=== PATIENT | female | born 1960 | race Caucasian/White ===

== ENCOUNTER 2022-01-07 10:34 | Emergency (ER) | payer OTHER, SELFPAY ==
[2022-01-07 10:35] VITALS: BP 131/96; PULSE 89; RESP 16; TEMP 36.4; O2SAT 98
--- NOTE | 2022-01-07 10:43 | PC.NURSE ---
Pt took home covid test a week ago that came back positive. 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
--- NOTE | 2022-01-07 10:48 | ED.NAVMDI ---
HPI - Nausea/Vomiting/Diarrhea General Chief complaint: Nausea/Vomiting/Diarrhea Stated complaint: nausea/vomiting Time Seen by Provider: 01/07/22 10:39 History of Present Illness HPI Narrative: 61-year-old female presents emergency room for evaluation of nausea, vomiting, diarrhea intermittently for 3 weeks. Patient is under the care of oncologist at [facility] for liver cancer, which metastasized from primary breast cancer. Patient states she has been in contact with her PCP on several occasions, and was told to just take it easy. Patient denies melena cheesy or hemoptysis. Related Data Allergies Allergy/AdvReac Type Severity Reaction Status Date / Time No Known Allergies Allergy Verified 01/07/22 10:58 Review of Systems Review of Systems: CONSTITUTIONAL: Denies fever, chills, or sweats. EYES: Denies visual changes, redness, or discharge. ENT: Denies rhinorrhea, congestion, sore throat, or otalgia. CARDIOVASCULAR: Denies chest pain, palpitations, or edema. RESPIRATORY: Denies cough or dyspnea. GASTROINTESTINAL: Reports abdominal cramping, nausea, vomiting and diarrhea GENITOURINARY: Denies dysuria or hematuria. SKIN: Denies rash or itching. MUSCULOSKELETAL: Denies back pain, joint pain, or myalgia. NEUROLOGIC: Denies headache, numbness, dizziness, or weakness. PSYCHIATRIC: Denies anxiety or depression. Exam Narrative: GENERAL: Well-appearing, well-nourished, and in no acute distress. HEAD: Normocephalic, atraumatic. EYES: PERRLA and EOMI. ENT: Nares clear, no rhinorrhea or epistaxis. Mucous membranes dry. CHEST: Clear to auscultation. No respiratory distress. No wheezes rales or rhonchi HEART: Regular rate and rhythm. No murmur heard. Normal peripheral pulses. ABDOMEN: Soft, nontender, nondistended, normal active bowel sounds. EXTREMITIES: Normal range of motion. No edema. SKIN: Warm, dry, no rash. NEURO: No focal deficits. Alert and oriented x3. PSYCH: Normal mood and affect. Course Vital Signs Vital signs: Vital Signs Temperature 36.4 C 01/07/22 10:35 Pulse Rate 89 01/07/22 10:35 Respiratory Rate 16 01/07/22 10:35 Blood Pressure 131/96 H 01/07/22 10:35 Pulse Oximetry 98 01/07/22 10:35 Temperature 36.4 C 01/07/22 10:35 Pulse Rate 89 01/07/22 10:35 Respiratory Rate 16 01/07/22 10:35 Blood Pressure 131/96 H 01/07/22 10:35 Pulse Oximetry 98 01/07/22 10:35 MDM - Nausea/Vomiting/Diarrhea Lab Data Result diagrams: 01/07/22 10:49 01/07/22 10:49 Labs: Lab Results 01/07/22 01/07/22 Range/Units 10:49 10:49 WBC 5.2 (4.5-10.0) K/mm3 RBC 4.05 L (4.2-5.4) M/mm3 Hgb 13.6 (12.0-15.0) g/dL Hct 41.5 (37.0-47.0) % MCV 102.5 H (80-100) fl MCH 33.6 (26-34) pg MCHC 32.8 (32-36) g/dl RDW 14.8 H (11.5-14.5) % Plt Count 149 L (150-375) k/mm3 MPV 10.5 H (7.4-10.4) fl Immature Gran % (Auto) 0.2 (0-0.5) % Neut % (Auto) 59.2 (45.5-73.1) % Lymph % (Auto) 27.5 (18.3-44.2) % [place] % (Auto) 11.5 H (2.6-8.5) % Eos % (Auto) 1.2 (0-4.4) % Baso % (Auto) 0.4 (0.2-1.2) % Lymph # (Auto) 1.43 (0.9-3.2) K/mm3 [place] # (Auto) 0.6 (0.1-0.6) K/mm3 Eos # (Auto) 0.1 (0-0.3) K/mm3 Baso # (Auto) 0.0 (0.0-0.1) K/mm3 Abs Immat Gran (auto) 0.01 (0.00-0.031) K/mm3 Absolute Neuts (auto) 3.1 (1.3-6.7) K/mm3 Absolute Nucleated RBC 0.0 (0.0-0.012) K/mm3 Nucleated RBC % 0.0 (0.0-0.2) % Sodium 135 L (137-145) mmol/L Potassium 4.0 (3.4-5.0) mmol/L Chloride 102 (98-107) mmol/L Carbon Dioxide 27 (22-30) mmol/L Anion Gap 6 L (8-16) mmol/L BUN 7 (7-17) mg/dL Creatinine 0.60 L (0.7-1.0) mg/dL Estim Creat Clear Calc 90 ml/min Estimated GFR > 60 (59 - ) Glucose 109 (65-110) mg/dL Calcium 9.1 (8.4-10.2) mg/dL Total Bilirubin 0.7 (0.2-1.3) mg/dL AST 102 H (14-36) U/L ALT 48 H (6-35) U/L Alkaline Phosphatase 174 H (38-126) U/L Total Protein 7.
[2022-01-07 10:55] LABS: Basophils Percent Auto 0.4 % (0.2-1.2); Eosinophils Absolute Auto 0.1 K/mm3 (0-0.3); Eosinophils Percent Auto 1.2 % (0-4.4); Hematocrit 41.5 % (37.0-47.0); Hemoglobin 13.6 g/dL (12.0-15.0); Immature Granulocyte Absolute 0.01 K/mm3 (0.00-0.031); Immature Granulocyte Percent A 0.2 % (0-0.5); Lymphocytes Absolute Auto 1.43 K/mm3 (0.9-3.2); Lymphocytes Percent Auto 27.5 % (18.3-44.2); Mean Corpuscular HGB Conc 32.8 g/dl (32-36); Mean Corpuscular Hemoglobin 33.6 pg (26-34); Mean Corpuscular Volume 102.5 fl (80-100); Mean Platelet Volume 10.5 fl (7.4-10.4); Monocytes Absolute Auto 0.6 K/mm3 (0.1-0.6); Monocytes Percent Auto 11.5 % (2.6-8.5); Neutrophils Absolute Auto 3.1 K/mm3 (1.3-6.7); Neutrophils Percent Auto 59.2 % (45.5-73.1); Platelet Count Result 149 k/mm3 (150-375); Red Blood Count 4.05 M/mm3 (4.2-5.4); Red Cell Distribution Width 14.8 % (11.5-14.5); White Blood Count 5.2 K/mm3 (4.5-10.0)
[2022-01-07] MEDS: Please add drug allergy info to patient profile. 1 EACH XX (10:58)
[2022-01-07] MEDS: ONDANSETRON INJ 4 MG/2 ML VIAL IV PUSH (10:59)
[2022-01-07] MEDS: SODIUM CHLORIDE 0.9% IV 1,000 ML 999 ML IV CONT ×2 (10:59→12:10)
[2022-01-07] MEDS: DICYCLOMINE HCL INJ 20 MG/2 ML VIAL IM (10:59)
[2022-01-07 11:04] LABS: Alanine Aminotransferase 48 U/L (6-35); Albumin Level 4.1 g/dL (3.5-5.1); Alkaline Phosphatase 174 U/L (38-126); Anion Gap 6 mmol/L (8-16); Aspartate Amino Transferase 102 U/L (14-36); Bilirubin,Total 0.7 mg/dL (0.2-1.3); Blood Urea Nitrogen 7 mg/dL (7-17); Calcium 9.1 mg/dL (8.4-10.2); Carbon Dioxide 27 mmol/L (22-30); Chloride 102 mmol/L (98-107); Estimated CRCL calculation 90 ml/min; Estimated Glomerular Filt Rate > 60; Glucose 109 mg/dL (65-110); Sodium 135 mmol/L (137-145)
[2022-01-07 12:54] VITALS: BP 129/100; PULSE 87; RESP 16; O2SAT 95
== END 2022-01-07 12:57 | disposition home or self-care (01) ==
PROVIDERS: Emergency Provider Nurse Practitioner Family
DX: R11.2 Nausea with vomiting, unspecified (principal); C50.919 Malignant neoplasm of unspecified site of unspecified female breast; C78.7 Secondary malignant neoplasm of liver and intrahepatic bile duct; Z86.16 Personal history of COVID-19
CPT/HCPCS: 36415; 80053; 85025; 96361; 96372; 96374; 99284; J0500; J2405; J7030

== ENCOUNTER 2022-08-30 16:40 | Outpatient (CLI) | payer OTHER, SELFPAY ==
--- NOTE | ~2022-08-30 | XR_ITS ---
AP and oblique views of the bilateral ribs Clinical History: Pain Findings: No rib fracture is seen. Osseous alignment is anatomic. Lungs are clear, without focal cons olidation or pleural effusion. Cardiomediastinal contour is within normal limits. Soft tissues are un remarkable. Left-sided Mediport noted. Impression: No rib fracture is seen. Reviewed, dictated and finalized at [facility]. IC PROCESS ENGINEER Impression: No rib fracture is seen.
== END 2022-08-30 16:41 | disposition home or self-care (01) ==
LOC: ANHIMG 16:43
DX: R07.81 Pleurodynia (principal)
CPT/HCPCS: 71110

== ENCOUNTER 2022-11-23 06:27 | Inpatient (IN) | payer OTHER, SELFPAY ==
[2022-11-23] VITALS (29 sets, daily range): BP systolic 75–110; BP diastolic 44–73; PULSE 80–134; RESP 17–35; TEMP 36.3–36.5; O2SAT 94–98; BMI 23.0
--- NOTE | ~2022-11-23 | CT_ITS ---
EXAMINATION: CT abdomen pelvis w con DATE: 11/23/2022 14:25 INDICATION: Lower abdominal pain, bloody stools. History of renal cancer TECHNIQUE: Computed tomography (CT) of the abdomen and pelvis was performed with 100 CC Omnipaque 350 intravenous contrast. Automated exposure control and iterative reconstruction technique were employe d. Exam dose: 455.01 mGy-cm total exam DLP. COMPARISON: None. FINDINGS: There is mild infiltrate or atelectasis at the middle lobe and lateral basilar left lower l obe posterior basilar right lower lobe. There is some right mastectomy with breast implant reconstruction. There is hepatomegaly, with innumerable hepatic space-occupying mass lesions of variable size likely due to extensive hepatic metastasis. No pancreatic mass lesion or calcification or ductal dilatation. Splenic size is within normal range. Mild perihepatic ascites. Mild fluid in the right paracolic gutter, Morison's pouch. No renal mass lesion or urinary tract calculus or hydroureteronephrosis. The urinary bladder is unrem arkable. Status post hysterectomy. Normal caliber of the abdominal aorta. No intraperitoneal or retroperitoneal or pelvic mass lesion or adenopathy. There is diffuse thickening of the wall of the rectum and colon suggesting colitis which may be infec tious, inflammatory, less likely ischemic. No bowel obstruction or intraperitoneal free air Small fat-containing umbilical hernia. No suspicious osteolytic or osteoblastic lesions. Subacute healing left rib fractures. IMPRESSION: Atelectasis post right mastectomy with breast reconstruction Extensive hepatic metastatic disease Diffuse thickening of the wall of the rectum and colon suggesting infectious or inflammatory process Mild ascites Reviewed, dictated and finalized at [facility]. Reviewed, dictated and finalized at [facility].
--- NOTE | ~2022-11-23 | CT_ITS ---
EXAMINATION: CT brain wo con INDICATION: Confusion COMPARISON: None TECHNIQUE: Standard unenhanced head CT. The dose-length product (DLP) was 605.33 mGy-cm. The mA was a djusted according to patient size. Iterative reconstruction technique was employed. FINDINGS: There is a 4 mm hyperdense focus in the medial aspect of the left frontal lobe on image 35. There is no evidence of acute infarction. The ventricles are normal. There is no abnormal mass effec t or midline shift. The sarah-white matter differentiation is normal. The basal cisterns are patent. T he orbits are normal. The paranasal sinuses, mastoids and calvarium are normal. IMPRESSION: 1. 4 mm hyperdense focus in the medial aspect of the left frontal lobe which could reflect an intracr anial mass, primary versus metastatic or possibly a vascular abnormality. Follow-up with nonemergent MRI without and with contrast is recommended. Reviewed, dictated and finalized at [facility]. IMPRESSION: 1. 4 mm hyperdense focus in the medial aspect of the left frontal lobe which co uld reflect an intracranial mass, primary versus metastatic or possibly a vascu lar abnormality. Follow-up with nonemergent MRI without and with contrast is re commended.
[2022-11-23] MEDS: SODIUM CHLORIDE 0.9% IV 1,000 ML 999 ML IV CONT ×3 (07:05→10:50)
[2022-11-23 07:16] LABS: Hematocrit 40.3 % (37.0-47.0); Hemoglobin 12.5 g/dL (12.0-15.0); Mean Corpuscular Hemoglobin 30.5 pg (26-34); Mean Corpuscular Volume 98.3 fl (80-100); Mean Platelet Volume 11.2 fl (7.4-10.4); Platelet Count Result 208 k/mm3 (150-375)
[2022-11-23] MEDS: ONDANSETRON INJ 4 MG/2 ML VIAL IV PUSH (07:17)
[2022-11-23 07:26] LABS: Albumin Level 4.1 g/dL (3.5-5.1); Alkaline Phosphatase 180 U/L (38-126); Anion Gap 16 mmol/L (8-16); Aspartate Amino Transferase 64 U/L (14-36); Bilirubin,Total 1.3 mg/dL (0.2-1.3); Blood Urea Nitrogen 21 mg/dL (7-17); Calcium 9.3 mg/dL (8.4-10.2); Carbon Dioxide 20 mmol/L (22-30); Chloride 101 mmol/L (98-107); Estimated CRCL calculation 69 ml/min; Estimated Glomerular Filt Rate > 60; Glucose 137 mg/dL (65-110); Lipase 92 U/L (23-300); Potassium 4.3 mmol/L (3.4-5.0); Sodium 137 mmol/L (137-145)
[2022-11-23 07:33] LABS: Alanine Aminotransferase 50 U/L (6-35)
[2022-11-23 07:48] LABS: Band Neutrophils Percent 11 % (0-6); Lymphocytes Absolute Manual 0.78 K/mm3 (1.1-4.5); Lymphocytes Percent Manual 39 % (18-44); Monocytes Absolute Manual 0.46 K/mm3 (0.1-0.90); Monocytes Percent Manual 23 % (3-9); Neutrophils Absolute Manual 0.76 K/mm3 (1.7-7.2); Neutrophils Percent Manual 27 % (46-73); Total Cells Counted 100
[2022-11-23 07:49] LABS: Anisocytosis 1+ (NORMAL); Platelet Estimate Adequate (Adequate); Schistocytes None Seen (NORMAL)
[2022-11-23 08:23] LABS: Bacteria Urine 4+ /hpf; Hyaline Casts Urine Present /lpf; RBC Urine 0-2 /hpf (0-2); Squamous Epithelial Cell Urine Occasional /hpf (Few)
[2022-11-23 08:41] LABS: Appearance Urine Cloudy (Clear); Bilirubin Urine 2+ (Negative); Blood Urine Negative (Negative); Color Urine Orange (Yellow); Glucose Urine UA Negative (Negative); Ketones Urine Negative (Negative); Leukocyte Esterase Ur 2+ LEU/UL (Negative); Nitrate Urine Positive (Negative); Protein Urine 2+ mg/dL (Negative); Specific Grav Ur 1.022 (1.001-1.035)
[2022-11-23 08:42] LABS: Add Urine Microscopic? YES
--- NOTE | 2022-11-23 11:41 | ED.GENADULT ---
HPI - General Adult General Chief complaint: Unspecified Stated complaint: dehydrated Time Seen by Provider: 11/23/22 06:57 History of Present Illness HPI narrative: Patient is a 62-year-old female who presents ER with concerns for dehydration. Reports she has been having some regular diarrhea as well as nausea and vomiting last couple days symptoms began after she received chemotherapy. She receives her chemotherapy through [facility]. She has metastatic colon cancer to her liver and omentum. Denies fevers or chills or sweats. No productive cough but has had a cough x 2 weeks. Denies urinary symptoms. Related Data Home Medications Medication Instructions Recorded Confirmed benzonatate 200 mg capsule 400 mg PO HS 11/23/22 11/23/22 citalopram 40 mg tablet 40 mg PO DAILY 11/23/22 11/23/22 ondansetron 4 mg disintegrating 4 mg PO Q8H PRN Nausea 11/23/22 11/23/22 tablet tramadol 50 mg tablet 50 mg PO PRN PRN Pain 11/23/22 11/23/22 valacyclovir 500 mg tablet 500 mg PO DAILY 11/23/22 11/23/22 Allergies Allergy/AdvReac Type Severity Reaction Status Date / Time No Known Allergies Allergy Verified 11/23/22 07:03 Review of Systems Review of Systems: All systems reviewed & are unremarkable except as noted in HPI and below Constitutional: Constitutional: Denies chills, Reports fatigue and Denies fever(s) ENT: Denies nasal congestion and Denies sore throat Cardiovascular: Cardiovascular: Denies chest pain and Denies rapid heart rate Respiratory: Respiratory: Denies chest congestion, Reports cough and Denies dyspnea Gastrointestinal: Gastrointestinal: Reports abdominal pain (Chronic due to metastases), Denies melena, Reports diarrhea, Reports nausea and Reports vomiting PMFSH Social History Social History Smoking status: Never smoker Alcohol intake: never Substance use: never Lack of Transportation: No Lack of Food: Never True Current Housing: I Have Housing Concerned About Future Housing: No Difficulty Paying Gas/Electric Bills: No Difficulty Paying for Meds: No Currently Unemployed: No Education: Decline to Answer Difficulty w/ Childcare or Family Care: No Spiritual care concerns: No Exam Narrative: GENERAL: Chronically ill-appearing, well-nourished, and in mild distress. HEAD: Normocephalic, atraumatic. EYES: PERRL and EOMI. ENT: Dry mucous membranes CHEST: Clear to auscultation. No respiratory distress. HEART: Tachycardic and regular.. Normal peripheral pulses. ABDOMEN: Soft, nontender, nondistended. EXTREMITIES: Normal range of motion. No edema. SKIN: Warm, dry, no rash. NEURO: Alert and oriented x3. PSYCH: Normal mood and affect. Course Course Emergency Course: Blood pressure low but fluid responsive. White count low but she is immunosuppressed and urine appears infected. She will be started on IV antibiotics. Accepted to hospitalist service. 1407: Patient passed normal-appearing liquid stool with stringy blood clots. She is having some crampy lower abdominal pain. We will add on a CT scan of the abdomen pelvis. Hospital service will be notified about this change. Vital Signs Vital signs: Vital Signs Temperature 97.4 F L 11/23/22 06:32 Pulse Rate 134 H 11/23/22 06:32 Respiratory Rate 22 H 11/23/22 06:32 Blood Pressure 75/48 L 11/23/22 06:32 Pulse Oximetry 98 11/23/22 06:32 Oxygen Delivery Room Air 11/23/22 06:32 Temperature 97.4 F L 11/23/22 16:00 Pulse Rate 80 11/23/22 18:00 Respiratory Rate 18 11/23/22 16:00 Blood Pressure 90/61 L 11/23/22 18:32 Pulse Oximetry 95 11/23/22 16:04 Oxygen Delivery Room Air 11/23/22 16:04 Medical Decision Making Vital Signs Vital Signs: Vital Signs Temperature 97.4 F L 11/23/22 06:32 Pulse Rate 134 H 11/23/22 06:32 Respiratory Rate 22 H 11/23/22 06:32 Blood Pressure 75/48 L 11/23/22 06:32 Pulse Oximetry 98
[2022-11-23] MEDS: ACETAMINOPHEN 325 MG TABLET 650 MG PO (12:59)
--- NOTE | 2022-11-23 14:30 | PM.IMHP ---
H&P: HPI History of Present Illness Date/Time: 11/23/22 14:30 Chief Complaint: Nausea, vomiting, diarrhea, weakness. Narrative: This is a 62-year-old female who is currently undergoing palliative chemotherapy for metastatic colon cancer to the liver who presented to the emergency department from home for evaluation nausea, vomiting, diarrhea, and weakness. Patient provides the following history. Her provides additional information with the patient's permission; she seems a bit forgetful which has been a new where development over the past month or so. She had chemotherapy last Monday and seemed to tolerate that well. Over the last several days however she has developed GI symptoms and she has been increasingly weak. She is getting lightheaded and dizzy and she has had some falls, luckily without injury. She continues to have nausea and poor oral intake but the vomiting seems to have slowed. She has buj-shfokjqp-dy-count episodes of diarrhea day. She denies fever, chills, sweats, headache, visual changes, focal weakness, vertigo, chest pain, shortness a breath, cough, and dysuria. While in the emergency department she did have loose stools admixed with bright red blood and blood clots and was sent for CT of the abdomen and pelvis which showed diffuse thickening of the wall of the rectum and colon suggesting infectious or inflammatory process. Blood pressures have been soft since arrival but have improved somewhat with IV fluids. She has been started on broad-spectrum antibiotics and is being admitted in this setting for further treatment and hydration. Review of Systems Review of Systems: Twelve systems were reviewed and are negative except for as per HPI. [facility], LAT[facility] Past Medical History Medical History (Updated 11/23/22 @ 21:43 by Yulia Finn PA-C) Cancer of right breast Status post mastectomy and chemoradiation. Metastatic colon cancer to liver Surgical History Surgical History (Updated 11/23/22 @ 21:34 by Yulia Finn PA-C) History of right mastectomy (2012) Port-A-Cath in place Family History Family History (Updated 11/23/22 @ 21:34 by Yulia Finn PA-C) Other Family history non-contributory Social History Social History (Updated 11/23/22 @ 21:35 by Yulia Finn PA-C) Social History: Surrogate medical decision maker: Parviz Abbott, spouse. Code status: Full code. Smoking status: Never smoker Alcohol intake: never Substance use: never Lack of Transportation: No Lack of Food: Never True Current Housing: I Have Housing Concerned About Future Housing: No Difficulty Paying Gas/Electric Bills: No Difficulty Paying for Meds: No Currently Unemployed: No Education: Decline to Answer Difficulty w/ Childcare or Family Care: No Additional living arrangements comments: Lives with spouse in [place]. Spiritual care concerns: No Meds Home Medications and Allergies Home Medications Medication Instructions Recorded Confirmed Type dicyclomine 10 mg capsule 10 mg PO TID #14 caps 01/07/22 11/23/22 Rx benzonatate 200 mg capsule 400 mg PO HS 11/23/22 11/23/22 History citalopram 40 mg tablet 40 mg PO DAILY 11/23/22 11/23/22 History gabapentin 300 mg capsule 300 mg PO TID 11/23/22 11/23/22 History ondansetron 4 mg disintegrating 4 mg PO Q8H PRN Nausea 11/23/22 11/23/22 History tablet tramadol 50 mg tablet 50 mg PO PRN PRN Pain 11/23/22 11/23/22 History valacyclovir 500 mg tablet 500 mg PO DAILY 11/23/22 11/23/22 History Allergies Allergy/AdvReac Type Severity Reaction Status Date / Time No Known Allergies Allergy Verified 11/23/22 07:03 Vital Signs Vital Signs - 24 hr 11/23/22 06:32 11/23/22 07:00 11/23/22 07:00 Temperature 97.4 F L Pulse Rate 134 H 134 H Respiratory Rate 22 H 22 H Blood Pressure 75/48 L Pulse Oximetry 98 98 Oxygen Delivery Room Air 11/23/22 07:29 11/23/22 08:26 11/23/22 10:24 Temperature Pulse R
[2022-11-23] MEDS: LACTATED RINGERS 1,000 ML 999 ML IV CONT (16:06)
[2022-11-23 16:26] LABS: Anion Gap 7 mmol/L (8-16); Blood Urea Nitrogen 21 mg/dL (7-17); Calcium 7.8 mg/dL (8.4-10.2); Carbon Dioxide 23 mmol/L (22-30); Chloride 104 mmol/L (98-107); Estimated CRCL calculation 78 ml/min; Estimated Glomerular Filt Rate > 60; Glucose 116 mg/dL (65-110); Magnesium 2.3 mg/dL (1.6-2.3); Potassium 4.1 mmol/L (3.4-5.0); Sodium 134 mmol/L (137-145)
--- NOTE | 2022-11-23 16:30 | ADMGEN ---
This patient, Radha Abbott, was admitted to IMU Room 206-02. 15:14 Patient/family oriented to hospital policies and general routines including ID bracelet, bed and alarms, visiting hours, pain management, procedures, bathroom and other care routines, personal items, smoking policy, room service/diet, and visiting hours. Information on how to activate the Rapid Response Team has been discussed. Patient/Family are encouraged to report perceived risks to care and to ask questions if they do not understand what they are told or what they should do.
[2022-11-23 18:10] LABS: Hematocrit 28.3 % (37.0-47.0); Hemoglobin 9.2 g/dL (12.0-15.0)
[2022-11-23] MEDS: metroNIDAZOLE 500 MG/ISO 100ML 500 MG/100 ML BAG 100 MG IVPB (18:34)
[2022-11-23 19:10] LABS: Reflex Lactic Acid Yes or No Add Lactic
[2022-11-23 19:56] LABS: Lactic Acid 2.7 mmol/L (0.7-2.0)
[2022-11-23 21:58] LABS: Hematocrit 29.3 % (37.0-47.0); Hemoglobin 9.2 g/dL (12.0-15.0)
[2022-11-24] VITALS (23 sets, daily range): BP systolic 93–134; BP diastolic 51–86; PULSE 80–115; RESP 16–24; TEMP 36.3–37.2; O2SAT 94–99; BMI 23.0
[2022-11-24 04:25] LABS: Hematocrit 27.9 % (37.0-47.0); Hemoglobin 8.7 g/dL (12.0-15.0); Mean Corpuscular HGB Conc 31.2 g/dl (32-36); Mean Corpuscular Hemoglobin 29.4 pg (26-34); Mean Corpuscular Volume 94.3 fl (80-100); Mean Platelet Volume 10.8 fl (7.4-10.4); Platelet Count Result 137 k/mm3 (150-375); Red Blood Count 2.96 M/mm3 (4.2-5.4); Red Cell Distribution Width 16.4 % (11.5-14.5); White Blood Count 2.2 K/mm3 (4.5-10.0)
[2022-11-24 04:37] LABS: Alanine Aminotransferase 25 U/L (6-35); Albumin Level 2.8 g/dL (3.5-5.1); Alkaline Phosphatase 101 U/L (38-126); Anion Gap 3 mmol/L (8-16); Aspartate Amino Transferase 37 U/L (14-36); Bilirubin,Total 0.9 mg/dL (0.2-1.3); Blood Urea Nitrogen 16 mg/dL (7-17); Calcium 8.2 mg/dL (8.4-10.2); Carbon Dioxide 25 mmol/L (22-30); Chloride 105 mmol/L (98-107); Estimated CRCL calculation 105 ml/min; Estimated Glomerular Filt Rate > 60; Glucose 77 mg/dL (65-110); Magnesium 2.4 mg/dL (1.6-2.3); Sodium 133 mmol/L (137-145)
[2022-11-24] MEDS: ACETAMINOPHEN 325 MG TABLET 650 MG PO (04:52)
[2022-11-24 05:01] LABS: Band Neutrophils Percent 14 % (0-6); Lymphocytes Absolute Manual 0.99 K/mm3 (1.1-4.5); Monocytes Absolute Manual 0.19 K/mm3 (0.1-0.90); Monocytes Percent Manual 9 % (3-9); Neutrophils Absolute Manual 1.01 K/mm3 (1.7-7.2); Neutrophils Percent Manual 32 % (46-73); Total Cells Counted 100
[2022-11-24 05:02] LABS: Anisocytosis 1+ (NORMAL); Ovalocytes 1+ (NORMAL); Platelet Estimate Decreased (Adequate); Schistocytes None Seen (NORMAL)
[2022-11-24] MEDS: metroNIDAZOLE 500 MG/ISO 100ML 500 MG/100 ML BAG 100 MG IVPB ×3 (05:22→23:01)
--- NOTE | 2022-11-24 06:53 | WPDGICN ---
Assessment and Plan Assessment and plan (1) Colitis: Code(s): K52.9 - Noninfective gastroenteritis and colitis, unspecified Status: Acute Assessment and Plan: she began having severe diarrhea with blood yesterday. She had never had anything like this before. She has not been traveling. CT scan shows diffuse colitis with thickening of mucosa throughout the colon and rectum. We have were stool cultures, stool for C diff toxin etc. but she has been able to produce stool that we can collect. Her low blood pressure precludes her from getting out of bed to use the restroom. (2) Lower GI bleeding: Code(s): K92.2 - Gastrointestinal hemorrhage, unspecified Status: Acute Assessment and Plan: She 1st began seeing blood her stools yesterday when she also developed diarrhea. prior to this her bowel movements were normal. She is not certain when she had her last colonoscopy. (3) Acute blood loss anemia: Code(s): D62 - Acute posthemorrhagic anemia Status: Acute Assessment and Plan: Her hemoglobin has dropped from 12.5 yesterday when she was admitted to 8.7. Part of this drop I am sure is because she was dehydrated. Last year her hemoglobin was over 13 (4) Nausea & vomiting: Code(s): R11.2 - Nausea with vomiting, unspecified Status: Acute Assessment and Plan: she has been able to tolerate liquids. (5) Metastatic breast cancer: Code(s): C50.919 - Malignant neoplasm of unspecified site of unspecified female breast Status: Acute Assessment and Plan: She was 1st diagnosed 10 years ago. She responded to chemotherapy but now has recurrence with peritoneal implants. Plan Will attempt a unprepped colonoscopy today to visualize the colon and also obtain stool specimens which cannot otherwise be obtained due to her being on bed rest and wearing a diaper GI Consult Note Consult date/time: 11/24/22 06:53 HPI: Radha Abbott is a 62 year old female Who was admitted because of profound diarrhea began yesterday. The diarrhea has been bloody. She had not been traveling. She has not been on any recent antibiotics. She is having abdominal pain but has chronic pain since she was diagnosed with metastatic breast cancer to the peritoneum. There are references in her record that she has had colon cancer but that is not the case. She has breast cancer 10 years ago. She was treated and did well but now he has had a recurrence with metastases to the abdominal cavity. Because she has been weak and hypotensive she is not allowed to get out of bed and therefore cannot use the commode. We are trying to obtain stool cultures. Review of Systems Review of Systems: All systems reviewed & are unremarkable except as noted in HPI and below PMFSH Past Medical History Medical History Cancer of right breast Status post mastectomy and chemoradiation. Metastatic colon cancer to liver Surgical History Surgical History History of right mastectomy (2012) Port-A-Cath in place Family History Family History Other Family history non-contributory Social History Social History Social History: Surrogate medical decision maker: Parviz Scar, spouse. Code status: Full code. Smoking status: Never smoker Alcohol intake: never Substance use: never Lack of Transportation: No Lack of Food: Never True Current Housing: I Have Housing Concerned About Future Housing: No Difficulty Paying Gas/Electric Bills: No Difficulty Paying for Meds: No Currently Unemployed: No Education: Decline to Answer Difficulty w/ Childcare or Family Care: No Additional living arrangements comments: Lives with spouse in [place]. Spiritual care
[2022-11-24 11:25] LABS: Hematocrit 28.9 % (37.0-47.0); Hemoglobin 9.2 g/dL (12.0-15.0)
[2022-11-24] MEDS: LACTATED RINGERS 1,000 ML 150 ML IV CONT (12:18)
--- NOTE | 2022-11-24 12:22 | WPDANESEPPF ---
Anes - Initial Pre Proc Eval Procedure: Operation Date: 11/24/22 13:30 Proposed Procedures p Colonoscopy - Kenyon Brown MD Date/Time: 11/24/22 12:22 Surgeon: Edson Poon MD Pre Op Diagnosis: UTI,Dehydration,Nausea & Vomiting Patient Data Age: 62 Gender: F Height: 1.78 m Weight: 72.8 kg Last Vital Signs Temp 98.2 F 11/24/22 12:14 Pulse 87 11/24/22 12:14 Resp 18 11/24/22 12:14 BP 117/72 11/24/22 12:14 Pulse Ox 97 11/24/22 12:14 O2 Del Method Room Air 11/24/22 12:14 Allergies Allergy/AdvReac Type Severity Reaction Status Date / Time No Known Allergies Allergy Verified 11/24/22 12:12 Home Medications Medication Instructions Recorded Confirmed Type dicyclomine 10 mg capsule 10 mg PO TID #14 caps 01/07/22 11/24/22 Rx benzonatate 200 mg capsule 400 mg PO HS 11/23/22 11/24/22 History citalopram 40 mg tablet 40 mg PO DAILY 11/23/22 11/24/22 History gabapentin 300 mg capsule 300 mg PO TID 11/23/22 11/24/22 History ondansetron 4 mg disintegrating 4 mg PO Q8H PRN Nausea 11/23/22 11/24/22 History tablet tramadol 50 mg tablet 50 mg PO PRN PRN Pain 11/23/22 11/24/22 History valacyclovir 500 mg tablet 500 mg PO DAILY 11/23/22 11/24/22 History Laboratory Tests 11/23/22 11/23/22 11/23/22 16:06 16:06 16:06 WBC RBC Hgb Hct MCV MCH MCHC RDW Plt Count MPV Immature Gran % (Auto) Neut % (Auto) Lymph % (Auto) [place] % (Auto) Eos % (Auto) Baso % (Auto) Lymph # (Auto) [place] # (Auto) Eos # (Auto) Baso # (Auto) Abs Immat Gran (auto) Absolute Neuts (auto) Absolute Nucleated RBC Total Counted Neutrophils % (Manual) Band Neutrophils % Lymphocytes % (Manual) Monocytes % (Manual) Nucleated RBC % Abs Neuts (Manual) Abs Lymphs (Manual) Abs Monocytes (Manual) Platelet Estimate % Immature Plt Fraction Anisocytosis Ovalocytes Schistocytes Sodium 134 mmol/L L mmol/L (137-145) Potassium 4.1 mmol/L mmol/L (3.4-5.0) Chloride 104 mmol/L mmol/L (98-107) Carbon Dioxide 23 mmol/L mmol/L (22-30) Anion Gap 7 mmol/L L mmol/L (8-16) BUN 21 mg/dL H mg/dL (7-17) Creatinine 0.70 mg/dL mg/dL (0.7-1.0) Estim Creat Clear Calc 78 ml/min ml/min Estimated GFR > 60 (59 - ) Glucose 116 mg/dL H mg/dL (65-110) Lactic Acid 3.0 mmol/L H mmol/L (0.7-2.0) Calcium 7.8 mg/dL L mg/dL (8.4-10.2) Magnesium 2.3 mg/dL mg/dL (1.6-2.3) Total Bilirubin AST ALT Alkaline Phosphatase Total Protein Albumin TSH (Reflex) 1.160 uIU/mL uIU/mL (0.465-4.68) Blood Type Antibody Screen 11/23/22 11/23/22 11/23/22 18:04 18:04 19:31 WBC RBC Hgb 9.2 g/dL L D g/dL (12.0-15.0) Hct 28.3 % L % (37.0-47.0) MCV MCH MCHC RDW Plt Count MPV Immature Gran % (Auto) Neut % (Auto) Lymph % (Auto) [place] % (Auto) Eos % (Auto) Baso % (Auto) Lymph # (Auto) [place] # (Auto) Eos # (Auto) Baso # (Auto) Abs Immat Gran (auto) Absolute Neuts (auto) Absolute Nucleated RBC Total Counted Neutrophils % (Manual) Band Neutrophils % Lymphocytes %
[2022-11-24 12:38] LABS: Iron < 10 ug/dL (37-170)
[2022-11-24 12:56] LABS: Percent Iron Saturation < 4 % (20-50)
[2022-11-24 13:44] LABS: Folic Acid 4.9 ng/mL (2.76->20)
--- NOTE | 2022-11-24 13:54 | SUR.PHASEII ---
stool specimen brought to lab and given to Rachana in Lab at [id number]
[2022-11-24 14:51] LABS: Toxigenic C. Diff NEGATIVE (NEGATIVE)
--- NOTE | 2022-11-24 16:04 | PM.IMPN ---
Progress Note: A&P Assessment and Plan (1) Colitis: Code(s): K52.9 - Noninfective gastroenteritis and colitis, unspecified Status: Acute Assessment and Plan: Continue ceftriaxone and metronidazole. Stool studies pending. 11/24/2022 interval history: Patient with history of breast cancer, patient presented with a anemia and complaint of rectal bleeding seen by GI recommending colonoscopy to further evaluate, currently patient states feeling better denies any abdominal pain nausea or vomiting, evaluate will do the iron profile and vitamin B12 level, will follow-up on a colonoscopy and further recommendation to follow. (2) Lower GI bleeding: Code(s): K92.2 - Gastrointestinal hemorrhage, unspecified Status: Acute Assessment and Plan: Likely related to above; she has known colon cancer as well. She has been started on ceftriaxone and metronidazole for presumed infectious colitis. Stool studies have been ordered. GI consulted. (3) Dehydration: Code(s): E86.0 - Dehydration Status: Acute Assessment and Plan: Noninvasive cardiac output monitoring indicates she is fluid responsive. Continue judicious IV fluid rehydration with close monitoring of volume status. (4) Sepsis: Code(s): A41.9 - Sepsis, unspecified organism Status: Acute Assessment and Plan: With hypotension, leukopenia, bandemia, and elevated lactic acid level in the setting of colitis. Blood, urine, and stool studies pending. (5) Acute blood loss anemia: Code(s): D62 - Acute posthemorrhagic anemia Status: Acute Assessment and Plan: Secondary to rectal bleeding as detailed above. Trend H&H and transfuse if indicated. (6) Abnormal urinalysis: Code(s): R82.90 - Unspecified abnormal findings in urine Status: Acute Assessment and Plan: Asymptomatic though she is immunocompromised and has been started on antibiotics. Urine culture pending. (7) Immunocompromised patient: Code(s): D84.9 - Immunodeficiency, unspecified Status: Acute Assessment and Plan: Immunocompromised due to underlying malignancy and chemotherapy. (8) Metastatic colon cancer to liver: Code(s): C18.9 - Malignant neoplasm of colon, unspecified; C78.7 - Secondary malignant neoplasm of liver and intrahepatic bile duct Status: Acute Assessment and Plan: She seems to have been suffering from memory loss the last [address] ordered to evaluate for possible metastatic disease. No gross findings noted on exam today. On palliative chemotherapy, due for treatment next Monday. Subjective Date/time seen: 11/24/22 16:04 Nausea, vomiting, diarrhea, weakness. HPI-Narrative: This is a 62-year-old female who is currently undergoing palliative chemotherapy for metastatic colon cancer to the liver who presented to the emergency department from home for evaluation nausea, vomiting, diarrhea, and weakness. Patient provides the following history.? Her provides additional information with the patient's permission; she seems a bit forgetful which has been a new where development over the past month or so. She had chemotherapy last Monday and seemed to tolerate that well. Over the last several days however she has developed GI symptoms and she has been increasingly weak. She is getting lightheaded and dizzy and she has had some falls, luckily without injury. She continues to have nausea and poor oral intake but the vomiting seems to have slowed. She has bnx-[id number]-up-count episodes of diarrhea day. She denies fever, chills, sweats, headache, visual changes, focal weakness, vertigo, chest pain, shortness a breath, cough, and dysuria.? While in the emergency department she did have loose stools admixed with bright red blood and blood clots and was sent for CT of the abdomen and pelvis which showed diffuse thickening of the wall of the rectum and colon s
[2022-11-24] MEDS: valACYclovir HCL 500 MG TABLET PO (16:16)
[2022-11-24] MEDS: GABAPENTIN 300 MG CAPSULE PO (16:16)
[2022-11-24] MEDS: CITALOPRAM HYDROBROMIDE 20 MG TABLET 40 MG PO (16:16)
[2022-11-24 17:45] LABS: Hematocrit 21.6 % (37.0-47.0)
[2022-11-24 18:18] LABS: Hemoglobin 6.9 g/dL (12.0-15.0)
[2022-11-24] MEDS: SODIUM CHLORIDE 0.9% IV 250 ML 30 ML IV CONT (20:00)
[2022-11-24] MEDS: TUBING, BLOOD PLUM PUMP TUBING 1 EACH XX (20:00)
[2022-11-24] MEDS: BENZONATATE 100 MG CAPSULE 400 MG PO (21:50)
[2022-11-24] MEDS: ONDANSETRON HCL ODT 4 MG TABLET PO (22:50)
[2022-11-25] VITALS (7 sets, daily range): BP systolic 103–127; BP diastolic 69–84; PULSE 74–89; RESP 16–20; TEMP 36.7–37.5; O2SAT 92–97
[2022-11-25 04:50] LABS: Hematocrit 32.2 % (37.0-47.0); Hemoglobin 10.3 g/dL (12.0-15.0); Mean Corpuscular Hemoglobin 29.7 pg (26-34); Mean Corpuscular Volume 92.8 fl (80-100); Mean Platelet Volume 10.1 fl (7.4-10.4); Platelet Count Result 167 k/mm3 (150-375); Red Blood Count 3.47 M/mm3 (4.2-5.4); Red Cell Distribution Width 17.9 % (11.5-14.5); White Blood Count 2.1 K/mm3 (4.5-10.0)
[2022-11-25 05:08] LABS: Anion Gap 5 mmol/L (8-16); Blood Urea Nitrogen 10 mg/dL (7-17); Calcium 8.5 mg/dL (8.4-10.2); Carbon Dioxide 26 mmol/L (22-30); Chloride 103 mmol/L (98-107); Estimated CRCL calculation 89 ml/min; Estimated Glomerular Filt Rate > 60; Glucose 71 mg/dL (65-110); Magnesium 2.1 mg/dL (1.6-2.3); Potassium 3.3 mmol/L (3.4-5.0); Sodium 134 mmol/L (137-145)
[2022-11-25] MEDS: metroNIDAZOLE 500 MG/ISO 100ML 500 MG/100 ML BAG 100 MG IVPB (06:01)
--- NOTE | 2022-11-25 07:11 | WPDGIPROGNO ---
Progress Note: A&P Assessment and Plan (1) Colitis: Code(s): K52.9 - Noninfective gastroenteritis and colitis, unspecified Status: Acute Assessment and Plan: she began having severe diarrhea with blood yesterday. She had never had anything like this before. She has not been traveling. CT scan shows diffuse colitis with thickening of mucosa throughout the colon and rectum. We had ordered stool cultures, stool for C diff toxin etc. but she has been able to produce stool that we can collect. Her low blood pressure precludes her from getting out of bed to use the restroom. I performed a colonoscopy yesterday which allowed us to obtain specimens. Also took biopsies in the sigmoid colon. The sigmoid was only area that actually looked inflamed, in contrast to the CT scan suggesting generalized colitis. (2) Lower GI bleeding: Code(s): K92.2 - Gastrointestinal hemorrhage, unspecified Status: Acute Assessment and Plan: She 1st began seeing blood her stools yesterday when she also developed diarrhea. prior to this her bowel movements were normal. She is not certain when she had her last colonoscopy. 11/25/2022 she has not seen any blood in her stools since her colonoscopy. (3) Acute blood loss anemia: Code(s): D62 - Acute posthemorrhagic anemia Status: Acute Assessment and Plan: Her hemoglobin has dropped from 12.5 yesterday when she was admitted to 8.7. Part of this drop I am sure is because she was dehydrated. Last year her hemoglobin was over 13 11/25/2022 hemoglobin 10.3 today versus 6.9 yesterday. (4) Nausea & vomiting: Code(s): R11.2 - Nausea with vomiting, unspecified Status: Acute Assessment and Plan: she has been able to tolerate liquids. 11/25/2022 she is not nauseated and in fact would like to try regular food this morning. (5) Metastatic breast cancer: Code(s): C50.919 - Malignant neoplasm of unspecified site of unspecified female breast Status: Acute Assessment and Plan: She was 1st diagnosed 10 years ago. She responded to chemotherapy but now has recurrence with peritoneal implants. Plan Will attempt a unprepped colonoscopy today to visualize the colon and also obtain stool specimens which cannot otherwise be obtained due to her being on bed rest and wearing a diaper 11/25/2022 stool specimens have all been obtain. C diff is negative. The others are pending. Because she is feeling bloated and going to start her on simethicone. She is hungry and wants to try regular diet. Subjective Date/time seen: 11/25/22 07:11 She said she slept better last night than the night before. She is having diffuse gassy type abdominal discomfort. She is still having diarrhea. Does not see blood her stools. I told her that so far we note she does not have C diff. I also explained her that the endoscopic findings did not reveal as much inflammation as a CT scan suggested, she did however have inflammation in the sigmoid colon where did take biopsies. Exam Const: General: alert Orientation/consciousness: patient oriented x3 Resp: Auscultation: clear to auscultation bilaterally Cardio: Rhythm: regular rhythm GI: Inspection: normal to inspection GI Palp: Yes Tenderness to palpation present (GI) ( Mild, generalized), No Guarding due to palpation present (GI) and Yes No hepatosplenomegaly present Percussion: Yes normal to percussion Auscultation: normal bowel sounds Neuro: General: patient oriented x3 Objective Data Vital Signs Vital Signs: Vital Signs - 24 hr 11/24/22 07:47 11/24/22 12:14 11/24/22 12:00 Temperature 36.9 C 36.8 C 36.6 C Pulse Rate 85 87 104 H Respiratory Rate 16 18 18 Blood Pressure 102/59 L 117/72 115/77 Pulse Oximetry 95 97 96 Oxygen Delivery Room Air 11/24/22 13:31 11/24/22 13:41 11/24/22 13:51 Temperature Pulse Rate 110 H 108 H 115 H Respiratory Rate 24 H 22 H 20 Blood
[2022-11-25] MEDS: SIMETHICONE 80 MG TAB.CHEW PO ×4 (09:01→21:02)
[2022-11-25] MEDS: valACYclovir HCL 500 MG TABLET PO (09:01)
[2022-11-25] MEDS: CITALOPRAM HYDROBROMIDE 20 MG TABLET 40 MG PO (09:02)
[2022-11-25] MEDS: GABAPENTIN 300 MG CAPSULE PO ×3 (09:02→16:43)
[2022-11-25] MEDS: POTASSIUM CHLORIDE 20 MEQ TABLET 40 MEQ PO (09:08)
[2022-11-25] MEDS: ACETAMINOPHEN 325 MG TABLET 650 MG PO ×2 (09:08→23:43)
--- NOTE | 2022-11-25 11:36 | PC.NURSE ---
This nurse attempted to access port and was unable. New IV inserted instead on first try. Port attempt site was covered with gauze and translucent dressing.
[2022-11-25] MEDS: AMOXICILLIN/CLAVULANATE K 875-125 MG TAB 1 TABLET PO ×2 (12:50→21:02)
[2022-11-25] MEDS: traMADol HCL (*CRX) 50 MG TABLET PO (12:56)
[2022-11-25] MEDS: ONDANSETRON HCL ODT 4 MG TABLET PO ×2 (14:14→23:43)
--- NOTE | 2022-11-25 15:26 | PC.NURSE ---
This patient, Radha Abbott, was transferred to [[id number] ] on 11/25/22 at 1526. Personal belongings sent with patient. Report given to [ Nathalie]. Appropriate documentation sent with patient.
--- NOTE | 2022-11-25 15:48 | PM.IMPN ---
Progress Note: A&P Assessment and Plan (1) Colitis: Code(s): K52.9 - Noninfective gastroenteritis and colitis, unspecified Status: Acute Assessment and Plan: Continue ceftriaxone and metronidazole. Stool studies pending. 11/25/2022 interval history: Patient with history of breast cancer, patient presented with anemia and complaint of rectal bleeding was seen by GI recommended colonoscopy to further evaluate, patient had a colonoscopy and showed colitis, patient C diff is negative patient is being treated ceftriaxone and Flagyl, currently patient states feeling better denies any abdominal pain nausea or vomiting, evaluate will do the iron profile and vitamin B12 level, will continue to monitor patient be seen by GI and further recommendation to follow. (2) Lower GI bleeding: Code(s): K92.2 - Gastrointestinal hemorrhage, unspecified Status: Acute Assessment and Plan: Likely related to above; she has known colon cancer as well. She has been started on ceftriaxone and metronidazole for presumed infectious colitis. Stool studies have been ordered. GI consulted. (3) Dehydration: Code(s): E86.0 - Dehydration Status: Acute Assessment and Plan: Noninvasive cardiac output monitoring indicates she is fluid responsive. Continue judicious IV fluid rehydration with close monitoring of volume status. (4) Sepsis: Code(s): A41.9 - Sepsis, unspecified organism Status: Acute Assessment and Plan: With hypotension, leukopenia, bandemia, and elevated lactic acid level in the setting of colitis. Blood, urine, and stool studies pending. (5) Acute blood loss anemia: Code(s): D62 - Acute posthemorrhagic anemia Status: Acute Assessment and Plan: Secondary to rectal bleeding as detailed above. Trend H&H and transfuse if indicated. (6) Abnormal urinalysis: Code(s): R82.90 - Unspecified abnormal findings in urine Status: Acute Assessment and Plan: Asymptomatic though she is immunocompromised and has been started on antibiotics. Urine culture pending. (7) Immunocompromised patient: Code(s): D84.9 - Immunodeficiency, unspecified Status: Acute Assessment and Plan: Immunocompromised due to underlying malignancy and chemotherapy. (8) Metastatic colon cancer to liver: Code(s): C18.9 - Malignant neoplasm of colon, unspecified; C78.7 - Secondary malignant neoplasm of liver and intrahepatic bile duct Status: Acute Assessment and Plan: She seems to have been suffering from memory loss the last 4 [address] Brain [address] ordered to evaluate for possible metastatic disease. No gross findings noted on exam today. On palliative chemotherapy, due for treatment next Monday. Subjective Date/time seen: 11/25/22 15:48 11/25/2022 interval history: Patient with history of breast cancer, patient presented with anemia and complaint of rectal bleeding was seen by GI recommended colonoscopy to further evaluate, patient had a colonoscopy and showed colitis, patient C diff is negative patient is being treated ceftriaxone and Flagyl, currently patient states feeling better denies any abdominal pain nausea or vomiting, evaluate will do the iron profile and vitamin B12 level, will continue to monitor patient be seen by GI and further recommendation to follow. Exam Narrative: Patient is comfortable, NAD HEENT: eyes are clear and none icteric LUNGS: Normal respiratory effort HEART: RR S1S2 ABD: Not distended Lower extremities: no edema SKIN: nonjaundiced Neuro: grossly intact. Objective Data Vital Signs Vital Signs: Vital Signs - 24 hr 11/24/22 16:00 11/24/22 16:00 11/24/22 18:00 Temperature 98.2 F Pulse Rate 84 84 87 Respiratory Rate 18 Blood Pressure 103/67 Pulse Oximetry 96 Oxygen Delivery 11/24/22 20:15 11/24/22 20:31 11/24/22 20:00 Temperature 97.9 F 98.9 F 97.9
[2022-11-25] MEDS: BENZONATATE 100 MG CAPSULE 400 MG PO (21:02)
[2022-11-26 07:17] LABS: Hematocrit 34.8 % (37.0-47.0); Hemoglobin 10.9 g/dL (12.0-15.0); Mean Corpuscular HGB Conc 31.3 g/dl (32-36); Mean Corpuscular Hemoglobin 28.4 pg (26-34); Mean Corpuscular Volume 90.6 fl (80-100); Mean Platelet Volume 10.6 fl (7.4-10.4); Platelet Count Result 199 k/mm3 (150-375); Red Blood Count 3.84 M/mm3 (4.2-5.4); Red Cell Distribution Width 17.6 % (11.5-14.5); White Blood Count 2.8 K/mm3 (4.5-10.0)
[2022-11-26 07:18] LABS: Anion Gap 4 mmol/L (8-16); Blood Urea Nitrogen 4 mg/dL (7-17); Calcium 8.7 mg/dL (8.4-10.2); Carbon Dioxide 27 mmol/L (22-30); Chloride 104 mmol/L (98-107); Estimated CRCL calculation 89 ml/min; Estimated Glomerular Filt Rate > 60; Glucose 81 mg/dL (65-110); Magnesium 1.9 mg/dL (1.6-2.3); Potassium 3.4 mmol/L (3.4-5.0); Sodium 135 mmol/L (137-145)
[2022-11-26 08:00] VITALS: BP 126/86; PULSE 92; RESP 18; TEMP 36.9; O2SAT 94
[2022-11-26] MEDS: valACYclovir HCL 500 MG TABLET PO (08:16)
[2022-11-26] MEDS: AMOXICILLIN/CLAVULANATE K 875-125 MG TAB 1 TABLET PO (08:16)
[2022-11-26] MEDS: ACETAMINOPHEN 325 MG TABLET 650 MG PO (08:17)
[2022-11-26] MEDS: SIMETHICONE 80 MG TAB.CHEW PO ×2 (08:17→12:39)
[2022-11-26] MEDS: CITALOPRAM HYDROBROMIDE 20 MG TABLET 40 MG PO (08:17)
[2022-11-26] MEDS: GABAPENTIN 300 MG CAPSULE PO ×2 (08:17→12:39)
[2022-11-26] MEDS: POTASSIUM CHLORIDE 20 MEQ TABLET 40 MEQ PO (09:04)
[2022-11-26 09:21] VITALS: O2SAT 92
--- NOTE | 2022-11-26 13:14 | PM.DS ---
DS: Admitting Diagnosis Discharge Date 11/26/2022 Admitting Diagnosis Nausea, vomiting, diarrhea, weakness. DS: Discharge Diagnosis Discharge Diagnosis (1) Colitis: Code(s): K52.9 - Noninfective gastroenteritis and colitis, unspecified Status: Acute Assessment and Plan: Continue ceftriaxone and metronidazole. Stool studies pending. 11/25/2022 interval history: Patient with history of breast cancer, patient presented with anemia and complaint of rectal bleeding was seen by GI recommended colonoscopy to further evaluate, patient had a colonoscopy and showed colitis, patient C diff is negative patient is being treated ceftriaxone and Flagyl, currently patient states feeling better denies any abdominal pain nausea or vomiting, evaluate will do the iron profile and vitamin B12 level, will continue to monitor patient be seen by GI and further recommendation to follow. (2) Lower GI bleeding: Code(s): K92.2 - Gastrointestinal hemorrhage, unspecified Status: Acute Assessment and Plan: Likely related to above; she has known colon cancer as well. She has been started on ceftriaxone and metronidazole for presumed infectious colitis. Stool studies have been ordered. GI consulted. (3) Dehydration: Code(s): E86.0 - Dehydration Status: Acute Assessment and Plan: Noninvasive cardiac output monitoring indicates she is fluid responsive. Continue judicious IV fluid rehydration with close monitoring of volume status. (4) Sepsis: Code(s): A41.9 - Sepsis, unspecified organism Status: Acute Assessment and Plan: With hypotension, leukopenia, bandemia, and elevated lactic acid level in the setting of colitis. Blood, urine, and stool studies pending. (5) Acute blood loss anemia: Code(s): D62 - Acute posthemorrhagic anemia Status: Acute Assessment and Plan: Secondary to rectal bleeding as detailed above. Trend H&H and transfuse if indicated. (6) Abnormal urinalysis: Code(s): R82.90 - Unspecified abnormal findings in urine Status: Acute Assessment and Plan: Asymptomatic though she is immunocompromised and has been started on antibiotics. Urine culture pending. (7) Immunocompromised patient: Code(s): D84.9 - Immunodeficiency, unspecified Status: Acute Assessment and Plan: Immunocompromised due to underlying malignancy and chemotherapy. (8) Metastatic colon cancer to liver: Code(s): C18.9 - Malignant neoplasm of colon, unspecified; C78.7 - Secondary malignant neoplasm of liver and intrahepatic bile duct Status: Acute Assessment and Plan: She seems to have been suffering from memory loss the last 4 [address] or [address] Brain [address] ordered to evaluate for possible metastatic disease. No gross findings noted on exam today. On palliative chemotherapy, due for treatment next Monday. DS: Summary Hospital Course Reason for hospitalization: Nausea, vomiting, diarrhea, weakness. Narrative: This is a 62-year-old female who is currently undergoing palliative chemotherapy for metastatic colon cancer to the liver who presented to the emergency department from home for evaluation nausea, vomiting, diarrhea, and weakness. Patient provides the following history.? Her provides additional information with the patient's permission; she seems a bit forgetful which has been a new where development over the past month or so. She had chemotherapy last Monday and seemed to tolerate that well. Over the last several days however she has developed GI symptoms and she has been increasingly weak. She is getting lightheaded and dizzy and she has had some falls, luckily without injury. She continues to have nausea and poor oral intake but the vomiting seems to have slowed. She has wwr-yqggfiql-xo-count episodes of diarrhea day. She denies fever, chills, sweats, headache, visual changes, focal weakness, vertigo, ch
--- NOTE | 2022-11-26 13:23 | PCPTNOTE ---
Attempted to see patient, but she reports she has discharge orders and reports no concerns with functional mobility when going home. Physical therapist double checked and her discharge orders is put in.
--- NOTE | 2022-11-26 14:14 | WPDGIPROGNO ---
Progress Note: A&P Assessment and Plan (1) Colitis: Code(s): K52.9 - Noninfective gastroenteritis and colitis, unspecified Status: Acute Assessment and Plan: bx reviewed, had colitis in sigmoid medical treatment (2) Lower GI bleeding: Code(s): K92.2 - Gastrointestinal hemorrhage, unspecified Status: Acute Assessment and Plan: no ongoing bleeding (3) Metastatic breast cancer: Code(s): C50.919 - Malignant neoplasm of unspecified site of unspecified female breast Status: Acute Assessment and Plan: palliative chemotherapy follow-up with oncologist (4) Immunocompromised patient: Code(s): D84.9 - Immunodeficiency, unspecified Status: Acute (5) Sepsis: Code(s): A41.9 - Sepsis, unspecified organism Status: Acute Assessment and Plan: treated and resolved (6) Acute blood loss anemia: Code(s): D62 - Acute posthemorrhagic anemia Status: Acute Assessment and Plan: multifactorial from chemo, advanced cancer, etc Subjective Date/time seen: 11/26/22 14:14 Interval history: still with diarrhea, she is trying to eat but poor appetite Review of Systems Review of Systems: All systems reviewed & are unremarkable except as noted in HPI and below Exam Const: General: alert Orientation/consciousness: patient oriented x3 Other: cachectic and thin HENMT: Face/Nose/Sinus: Normal nares present Eyes: General: appearance normal, both eyes and all related structures Neck: Neck: supple Resp: Auscultation: clear to auscultation bilaterally Cardio: Rhythm: regular rhythm GI: Inspection: normal to inspection GI Palp: Yes Tenderness to palpation present (GI) ( Mild, generalized) and No Guarding due to palpation present (GI) Percussion: Yes normal to percussion Auscultation: normal bowel sounds Skin: General skin exam: normal color Neuro: General: patient oriented x3 Extrem: General: normal to inspection Psych: Mental Status: mental status grossly normal Objective Data Vital Signs Vital Signs: Vital Signs - 24 hr 11/25/22 22:27 11/26/22 08:00 11/26/22 09:21 Temperature 99.5 F 98.4 F Pulse Rate 89 92 Respiratory Rate 16 18 Blood Pressure 124/80 126/86 Pulse Oximetry 92 94 92 Oxygen Delivery 11/26/22 08:00 Temperature Pulse Rate Respiratory Rate Blood Pressure Pulse Oximetry Oxygen Delivery Room Air Intake/Output Intake/Output: Intake & Output 11/23/22 11/24/22 11/25/22 11/26/22 23:59 23:59 23:59 23:59 Intake Total 1420 2590 670 860 Output Total 302 3 Balance 1420 2288 667 860 Meds/Results Medications: Active Medications Generic Name Dose Route Start Last Admin Trade Name Freq PRN Reason Stop Dose Admin Acetaminophen 650 mg 11/23/22 21:40 11/26/22 08:17 Acetaminophen 325 Mg Tablet PO 650 mg Q6H PRN Administration Mild Pain (1-3) or Fever Amoxicillin/Clavulanate Potassium 1 tablet 11/25/22 12:00 11/26/22 08:16 Amoxicillin/Clavulanate K 875-125 Mg Tab PO 11/29/22 21:01 1 tablet Q12HR TANK Administration Benzonatate 400 mg 11/24/22 21:00 11/25/22 21:02 Benzonatate 100 Mg Capsule PO 12/24/22 20:59 400 mg HS TANK Administration Citalopram Hydrobromide 40 mg 11/24/22 10:05 11/26/22 08:17 Citalopram Hydrobromide 20 Mg Tablet PO 40 mg DAILY TANK Administration Gabapentin 300 mg 11/24/22 13:00 11/26/22 12:39 Gabapentin 300 Mg Capsule PO 300 mg TID TANK Administration Ondansetron HCl 4 mg 11/23/22 21:40 Ondansetron Inj 4 Mg/2 Ml Vial IV PUSH Q6H PRN Nausea And Vomiting Ondansetron HCl 4 mg 11/24/22 09:58 11/25/22 23:43 Ondansetron Hcl Odt 4 Mg Tablet PO 4 mg Q8H PRN Administration Nausea Simethicone 80 mg 11/25/22 09:00 11/26/22 12:39 Simethicone 80 Mg Tab.Chew PO 80 mg QID TANK Administration Tramadol HCl 50 mg 11/24/22 09:58 11/25/22 12:56 Tramadol Hcl (
== END 2022-11-26 14:50 | disposition home or self-care (01) | DRG 392 ==
LOC: ANHED 07:14 → ANHIMU 14:13 → ANH3MEDSUR 11-25 15:28
PROVIDERS: Emergency Medicine; Internal Medicine Gastroenterology; Physician Assistant; Admitting Provider Hospitalist; Emergency Provider Emergency Medicine; Visit Provider Family Medicine
PROC: 0DJD8ZZ Inspection of Lower Intestinal Tract, Via Natural or Artificial Opening Endoscopic (ICD-10-PCS; CPT 45378; principal; 2022-11-24 13:30)
DX: A09 Infectious gastroenteritis and colitis, unspecified (principal); K92.2 Gastrointestinal hemorrhage, unspecified; D62 Acute posthemorrhagic anemia; C18.9 Malignant neoplasm of colon, unspecified; C78.7 Secondary malignant neoplasm of liver and intrahepatic bile duct; D84.9 Immunodeficiency, unspecified; E86.0 Dehydration; R82.90 Unspecified abnormal findings in urine
CPT/HCPCS: 36415; 36430; 70450; 74177; 80048; 80053; 81001; 82607; 82728; 82746; 83540; 83550; 83605; 83690; 83735; 84443; 85014; 85018; 85025; 85027; 85055; 86850; 86900; 86901; 86923; 87040; 87045; 87077; 87086; 87186; 87269; 87272; 87427; 87493; 88305; 89055; 96361; 96365; 96375; 99285; A9270; G0378; J0696; J2405; J2704; J7030; J7050; J7120; P9016; Q9967

== ENCOUNTER 2022-12-01 09:30 | Emergency (ER) | payer OTHER, SELFPAY ==
--- NOTE | ~2022-12-01 | CT_ITS ---
EXAMINATION: CT abdomen pelvis w con INDICATION: Abdominal pain, history of breast cancer metastatic to the liver TECHNIQUE: Computed tomographic images of the abdomen and pelvis were obtained after the administrati on of 100 cc of Omnipaque 350 intravenous contrast. The dose-length product (DLP) was 462.31 mGy-cm. Automated exposure control and iterative reconstruction technique were employed. COMPARISON: 11/23/2022 FINDINGS: There are small pleural effusions. There is mild atelectasis of the visualized lung bases. Changes of right mastectomy with implant reconstruction are noted. There is a moderate volume of asci ajay. There are multiple masses throughout the liver, many of which are confluent, large masses. The m ildly enlarged spleen measures 13.5 cm. The pancreas and gallbladder are normal. There is mild thicke gage of the adrenal gland. Hypoattenuating lesions in the kidneys, measuring up to 3 mm on the right, are too small to characterize but likely represent cysts. Again seen is circumferential wall thicken ing of much of the transverse, descending, and sigmoid colon. No free intraperitoneal gas or evidence of bowel obstruction. No pathologically enlarged abdominal or pelvic lymph nodes are identified. The appendix is normal. There is mild lumbar spondylosis. IMPRESSION: 1. Stable findings consistent with colitis, likely infectious or inflammatory. 2. Multiple large and confluent hepatic metastases. 3. Moderate volume of ascites. Reviewed, dictated and finalized at location L.
[2022-12-01 09:38] VITALS: BP 136/93; PULSE 88; RESP 18; TEMP 36.9; O2SAT 99
[2022-12-01 09:59] LABS: Basophils Absolute Auto 0.1 K/mm3 (0.0-0.1); Basophils Percent Auto 1.2 % (0.2-1.2); Eosinophils Percent Auto 0.1 % (0-4.4); Hematocrit 35.3 % (37.0-47.0); Immature Granulocyte Absolute 0.06 K/mm3 (0.00-0.031); Immature Granulocyte Percent A 0.8 % (0-0.5); Lymphocytes Absolute Auto 1.62 K/mm3 (0.9-3.2); Lymphocytes Percent Auto 21.1 % (18.3-44.2); Mean Corpuscular HGB Conc 31.2 g/dl (32-36); Mean Corpuscular Hemoglobin 28.4 pg (26-34); Mean Corpuscular Volume 91.2 fl (80-100); Mean Platelet Volume 9.4 fl (7.4-10.4); Monocytes Absolute Auto 0.6 K/mm3 (0.1-0.6); Monocytes Percent Auto 7.2 % (2.6-8.5); Neutrophils Absolute Auto 5.4 K/mm3 (1.3-6.7); Neutrophils Percent Auto 69.6 % (45.5-73.1); Platelet Count Result 268 k/mm3 (150-375); Red Blood Count 3.87 M/mm3 (4.2-5.4); Red Cell Distribution Width 18.3 % (11.5-14.5); White Blood Count 7.7 K/mm3 (4.5-10.0)
[2022-12-01 10:10] LABS: Alanine Aminotransferase 18 U/L (6-35); Albumin Level 3.5 g/dL (3.5-5.1); Alkaline Phosphatase 201 U/L (38-126); Anion Gap 9 mmol/L (8-16); Aspartate Amino Transferase 42 U/L (14-36); Bilirubin,Total 0.5 mg/dL (0.2-1.3); Blood Urea Nitrogen 2 mg/dL (7-17); Carbon Dioxide 24 mmol/L (22-30); Chloride 103 mmol/L (98-107); Estimated CRCL calculation 105 ml/min; Estimated Glomerular Filt Rate > 60; Glucose 101 mg/dL (65-110); Lipase 305 U/L (23-300); Potassium 3.5 mmol/L (3.4-5.0); Sodium 136 mmol/L (137-145)
[2022-12-01 11:32] LABS: Appearance Urine Clear (Clear); Bilirubin Urine Negative (Negative); Blood Urine Negative (Negative); Color Urine Yellow (Yellow); Glucose Urine UA Negative (Negative); Ketones Urine Negative (Negative); Leukocyte Esterase Ur Negative LEU/UL (Negative); Nitrate Urine Negative (Negative); Protein Urine Negative (Negative); Specific Grav Ur 1.007 (1.001-1.035); Urobilinogen Urine 0.2 mg/dL (<2.0); pH Urine 5.5 (5.0-9.0)
[2022-12-01 11:45] LABS: Add Urine Microscopic? NO
--- NOTE | 2022-12-01 12:51 | ED.ABDPAIN ---
HPI - Abdominal Pain General Chief Complaint: Abdominal Pain Stated Complaint: abd pain Time Seen by Provider: 12/01/22 12:10 History of Present Illness HPI narrative: This is a 62-year-old female with past history of breast cancer with metastasis to the liver and stomach, who returns emergency department complaining of abdominal pain. Patient states she was here last week after being diagnosed with colitis and discharged with amoxicillin. She states despite continuing her medications, she continues to have 8/10 cramping and intermittently sharp lower abdominal pain, greater on the left side. She states she vomited twice yesterday without blood and noted a small amount of bright red blood with wiping today. She denies any other bleeding or fevers. Related Data Home Medications Medication Instructions Recorded Confirmed benzonatate 200 mg capsule 400 mg PO HS 11/23/22 11/24/22 citalopram 40 mg tablet 40 mg PO DAILY 11/23/22 11/24/22 gabapentin 300 mg capsule 300 mg PO TID 11/23/22 11/24/22 ondansetron 4 mg disintegrating 4 mg PO Q8H PRN Nausea 11/23/22 11/24/22 tablet tramadol 50 mg tablet 50 mg PO PRN PRN Pain 11/23/22 11/24/22 valacyclovir 500 mg tablet 500 mg PO DAILY 11/23/22 11/24/22 Allergies Allergy/AdvReac Type Severity Reaction Status Date / Time milk AdvReac Abdominal Verified 12/01/22 11:19 Pain Review of Systems Review of Systems: CONSTITUTIONAL: Denies fever, chills, or sweats. CARDIOVASCULAR: Denies chest pain, palpitations, or edema. RESPIRATORY: Denies cough or dyspnea. GASTROINTESTINAL: Left lower quadrant abdominal pain, nausea and vomiting denies diarrhea. GENITOURINARY: Denies dysuria or hematuria. SKIN: Denies rash or itching. MUSCULOSKELETAL: Denies back pain, joint pain, or myalgia. NEUROLOGIC: Denies headache, numbness, dizziness, or weakness. PSYCHIATRIC: Denies anxiety or depression. [facility] Past Medical History Medical History Cancer of right breast Status post mastectomy and chemoradiation. Metastatic colon cancer to liver Surgical History Surgical History History of right mastectomy (2013) Port-A-Cath in place Family History Family History Other Family history non-contributory Social History Social History Social History: Surrogate medical decision maker: Parviz Abbott, spouse. Code status: Full code. Smoking status: Never smoker Alcohol intake: never Substance use: never Lack of Transportation: No Lack of Food: Never True Current Housing: I Have Housing Concerned About Future Housing: No Difficulty Paying Gas/Electric Bills: No Difficulty Paying for Meds: No Currently Unemployed: No Education: Decline to Answer Difficulty w/ Childcare or Family Care: No Additional living arrangements comments: Lives with spouse in [place]. Spiritual care concerns: No Exam Narrative: GENERAL: Well-developed, well-nourished, and in no acute distress. HEAD: Normocephalic, atraumatic. EYES: PERRLA and EOMI. ENT: Nares clear, no rhinorrhea or epistaxis. Mucous membranes moist. Oropharynx without tonsillar hypertrophy exudate or other lesions. CHEST: Clear to auscultation. No respiratory distress. No wheezes rales or rhonchi HEART: Regular rate and rhythm. No murmur heard. Normal peripheral pulses. ABDOMEN: Soft, tender to palpation in the left lower quadrant with mild active guarding but no rebound, nondistended, normal active bowel sounds. Left CVA tenderness to palpation, no right CVA tenderness to palpation EXTREMITIES: Normal range of motion. No edema. SKIN: Warm, dry, no rash. NEURO: No focal deficits. Alert and oriented x3. PSYCH: Normal mood and affect. Course Course Emergency Course: 15:00 - Labs demonstrate
[2022-12-01] MEDS: oxyCODONE/ACETAMINOPHEN (*CRX) 5-325 MG TABLET 1 TABLET PO (13:44)
== END 2022-12-01 16:04 | disposition home or self-care (01) ==
PROVIDERS: Emergency Medicine; Emergency Provider Preventive Medicine Aerospace Medicine
DX: K52.9 Noninfective gastroenteritis and colitis, unspecified (principal); R10.32 Left lower quadrant pain; C78.7 Secondary malignant neoplasm of liver and intrahepatic bile duct; C78.89 Secondary malignant neoplasm of other digestive organs; Z85.3 Personal history of malignant neoplasm of breast; Z92.21 Personal history of antineoplastic chemotherapy; Z92.3 Personal history of irradiation; Z90.11 Acquired absence of right breast and nipple
CPT/HCPCS: 36415; 74177; 80053; 81003; 83690; 85025; 99284; A9270; Q9967

== ENCOUNTER 2022-12-07 16:44 | Outpatient (CLI) | payer OTHER, SELFPAY ==
[2022-12-14 23:19] LABS: Calprotectin, Stool 492 mcg/g
== END 2022-12-07 16:45 | disposition home or self-care (01) ==
LOC: ANHLAB 16:45
PROVIDERS: Visit Provider Internal Medicine Gastroenterology
DX: K52.9 Noninfective gastroenteritis and colitis, unspecified (principal)
CPT/HCPCS: 83993

== ENCOUNTER 2022-12-20 13:52 | Outpatient (CLI) | payer OTHER, SELFPAY ==
[2022-12-27 10:40] LABS: ANCA Screen Negative (Negative); Myeloperoxidase Ab <1.0 AI (<1.0); Proteinase-3 Ab <1.0 AI (<1.0); S cerevisiae Ab (IgA) 14.6 U (<=20.0); S cerevisiae Ab (IgG) 40.4 U (<=20.0)
== END 2022-12-20 13:53 | disposition home or self-care (01) ==
LOC: ANHLAB 13:53
PROVIDERS: Visit Provider Internal Medicine Gastroenterology
DX: K52.9 Noninfective gastroenteritis and colitis, unspecified (principal)
CPT/HCPCS: 36415; 86036; 86671

== ENCOUNTER 2023-03-11 14:00 | Inpatient (IN) | payer OTHER, SELFPAY ==
--- NOTE | ~2023-03-11 | US_ITS ---
US venous doppler [facility] DATE: 03/12/2023 08:54 INDICATION: Swelling of the lower extremities TECHNIQUE: Real-time and color flow imaging and Doppler analysis of the veins of both lower extremiti es COMPARISON: None FINDINGS: There is greater saphenous veins are patent. There is spontaneous and phasic flow and normal augmentation and color flow signal of the right commo n femoral, femoral, popliteal, posterior tibial and peroneal veins. There is likewise spontaneous and phasic flow, normal augmentation and color flow signal and normal c ompression of the left common femoral, femoral and popliteal veins. However, there is thrombus within and lack of compression of the left posterior tibial and peroneal veins. IMPRESSION: Thrombosis of left posterior tibial and peroneal veins Reviewed, dictated and finalized at Location [facility]. Reviewed, dictated and finalized at location A.
--- NOTE | ~2023-03-11 | XR_ITS ---
EXAMINATION: XR chest 2V DATE: 03/16/2023 14:24 INDICATION: Weakness. TECHNIQUE: Frontal and lateral views of the chest were obtained. COMPARISON: Chest single view 03/11/2023, CT abdomen and pelvis 12/01/2022 FINDINGS: There are small pleural effusions, right worse than left. There are airspace opacities at t he lung bases, likely atelectasis. There are nodules in right midlung zone. No pneumothorax. The hear t size is normal. There is a left internal jugular port with tip in superior vena cava. A right breas t implant is noted. IMPRESSION: 1. Small pleural effusions, right worse than left with worsening on the right. 2. Nodules in right midlung zone, consistent with infection or metastatic disease. Reviewed, dictated and finalized at location A. IMPRESSION: 1. Small pleural effusions, right worse than left with worsening on the right. 2. Nodules in right midlung zone, consistent with infection or metastatic disea se.
--- NOTE | ~2023-03-11 | NM_ITS ---
EXAMINATION: NM bone scan whole body DATE: 03/14/2023 13:27 INDICATION: Metastatic breast cancer with hypercalcemia. TECHNIQUE: 28.0 mCi Tc-99m HDP was administered intravenously. Delayed whole-body scintigrams were o btained. COMPARISON: CT abdomen and pelvis 12/01/2022, chest single view 03/11/2023, head CT 11/23/22 FINDINGS: There are bilateral knee arthroplasties. There is a right breast implant. There is increase d activity in the sternum without correlate on the chest radiograph. There is increased activity in u pper cervical spine without radiographic comparison. IMPRESSION: 1. Increased activity in the sternum suspicious for metastatic disease. Chest CT is recommended. 2. Increased activity in upper cervical spine, which may be metastatic disease or spondylosis. Consid er cervical spine CT. Reviewed, dictated and finalized at location A. IMPRESSION: 1. Increased activity in the sternum suspicious for metastatic disease. Chest C T is recommended. 2. Increased activity in upper cervical spine, which may be metastatic disease or spondylosis. Consider cervical spine CT.
--- NOTE | ~2023-03-11 | XR_ITS ---
EXAMINATION: XR chest 1V portable DATE: 03/11/2023 15:06 INDICATION: Weakness. TECHNIQUE: A single frontal view of the chest was obtained. COMPARISON: CT abdomen and pelvis 12/01/2022 FINDINGS: There are airspace opacities in the lower lung zones. No pleural effusion or pneumothorax. The heart size is normal. There is a left internal jugular port with tip in superior vena cava. There is a right breast implant. IMPRESSION: 1. Airspace opacities in the lower lung zones, consistent with atelectasis versus pneumonia. Reviewed, dictated and finalized at location E. IMPRESSION: 1. Airspace opacities in the lower lung zones, consistent with atelectasis vers us pneumonia.
[2023-03-11 14:04] VITALS: BP 87/52; PULSE 85; RESP 20; TEMP 37.2; O2SAT 99
--- NOTE | 2023-03-11 14:48 | ECG_ITS ---
Measurements Intervals [place] Rate: 77 P: -35 AR: 167 QRS: -23 QRSD: 86 T: -4 QT: 336 QTc: 380 Interpretive Statements SINUS OR ECTOPIC ATRIAL RHYTHM DELAYED PRECORDIAL R/S TRANSITION BORDERLINE T WAVE ABNORMALITY- INFERIOR LEADS BORDERLINE ECG NO PREVIOUS ECG AVAILABLE FOR COMPARISON Electronically Signed On 03-11-2023 18:25:32 CDT by Ted Person D.O.
[2023-03-11 14:57] LABS: Basophils Percent Auto 0.1 % (0.2-1.2); Eosinophils Percent Auto 0.2 % (0-4.4); Hematocrit 32.7 % (37.0-47.0); Hemoglobin 10.2 g/dL (12.0-15.0); Immature Granulocyte Percent A 0.9 % (0-0.5); Lymphocytes Absolute Auto 0.79 K/mm3 (0.9-3.2); Lymphocytes Percent Auto 7.3 % (18.3-44.2); Mean Corpuscular HGB Conc 31.2 g/dl (32-36); Mean Corpuscular Hemoglobin 30.3 pg (26-34); Mean Platelet Volume 9.8 fl (7.4-10.4); Monocytes Absolute Auto 1.3 K/mm3 (0.1-0.6); Monocytes Percent Auto 12.2 % (2.6-8.5); Neutrophils Absolute Auto 8.5 K/mm3 (1.3-6.7); Neutrophils Percent Auto 79.3 % (45.5-73.1); Platelet Count Result 207 k/mm3 (150-375); Red Blood Count 3.37 M/mm3 (4.2-5.4); Red Cell Distribution Width 18.7 % (11.5-14.5); White Blood Count 10.8 K/mm3 (4.5-10.0)
[2023-03-11 15:06] LABS: Alanine Aminotransferase 46 U/L (6-35); Albumin Level 2.5 g/dL (3.5-5.1); Alkaline Phosphatase 336 U/L (38-126); Anion Gap -1 mmol/L (8-16); Aspartate Amino Transferase 147 U/L (14-36); Bilirubin,Total 0.9 mg/dL (0.2-1.3); Blood Urea Nitrogen 14 mg/dL (7-17); Calcium 12.4 mg/dL (8.4-10.2); Carbon Dioxide 28 mmol/L (22-30); Chloride 98 mmol/L (98-107); Estimated CRCL calculation 78 ml/min; Estimated Glomerular Filt Rate > 60; Glucose 76 mg/dL (65-110); Potassium 4.9 mmol/L (3.4-5.0); Sodium 125 mmol/L (137-145)
[2023-03-11] MEDS: SODIUM CHLORIDE 0.9% IV 1,000 ML 999 ML IV CONT ×2 (15:11→17:54)
--- NOTE | 2023-03-11 15:37 | ED.GENADULT ---
HPI - General Adult General Chief complaint: Recheck/Abnormal Lab/Rx Stated complaint: sent by alysia- Na/Mg low Time Seen by Provider: 03/11/23 14:38 History of Present Illness HPI narrative: 62-year-old female with history of breast cancer that metastasized to liver and brain. Patient is currently following up with Dr. Edison Mayo. Patient did have labs drawn yesterday and was found to have a low sodium and increased calcium. Patient also does report decreased p.o. intake and increased generalized weakness. Patient's last chemotherapy was approximately 3 weeks ago and her last radiation therapy was on Monday. Patient is receiving radiation of the brain Related Data Home Medications Medication Instructions Recorded Confirmed benzonatate 200 mg capsule 400 mg PO HS PRN Cough 11/23/22 03/11/23 citalopram 40 mg tablet 40 mg PO DAILY 11/23/22 03/11/23 gabapentin 300 mg capsule 300 mg PO TID 11/23/22 03/11/23 ondansetron 4 mg disintegrating 4 mg PO Q8H PRN Nausea 11/23/22 03/11/23 tablet valacyclovir 500 mg tablet 500 mg PO DAILY 11/23/22 03/11/23 loperamide 2 mg capsule 2 mg PO Q4H PRN Diarrhea 03/11/23 03/11/23 Allergies Allergy/AdvReac Type Severity Reaction Status Date / Time milk AdvReac Abdominal Verified 03/11/23 20:01 Pain Review of Systems Review of Systems: All systems reviewed & are unremarkable except as noted in HPI and below PMFSH Past Medical History Medical History Cancer of right breast Status post mastectomy and chemoradiation. Metastatic colon cancer to liver Surgical History Surgical History History of right mastectomy (2012) Port-A-Cath in place Family History Family History Other Family history non-contributory Social History Social History Social History: Surrogate medical decision maker: Parviz Abbott, spouse. Code status: Full code. Smoking status: Never smoker Alcohol intake: never Substance use: never Lack of Transportation: No Lack of Food: Never True Current Housing: I Have Housing Concerned About Future Housing: No Difficulty Paying Gas/Electric Bills: No Difficulty Paying for Meds: No Currently Unemployed: No Education: Decline to Answer Difficulty w/ Childcare or Family Care: No Additional living arrangements comments: Lives with spouse in [address]. Spiritual care concerns: No Exam Narrative: APPEARANCE: Cachectic and ill-appearing HEAD: normocephalic, atraumatic. EYES: PERRLA/EOMI, conjunctivae clear. NOSE: Normal no drainage NECK: Supple. No adenopathy, no masses. RESPIRATORY: Airway patent, respirations nonlabored. Clear to auscultation bilaterally, no rales, rhonchi, wheezing. CARDIOVASCULAR: Regular rate and rhythm without murmurs rubs or gallops. ABDOMINAL: Soft, nontender, nondistended, normal bowel sounds MUSCULOSKELETAL: Moves all extremities. Strength/ROM intact, lower extremity edema-better than baseline NEURO: Alert. Cranial nerves II through XII intact. Good gait. Good coordination SKIN: Warm, dry. Normal Color Course Course Emergency Course: 62 old female with history of hyperkalemia and hyponatremia and generalized weakness presented the ED for IV fluids. Patient has a leukocytosis of 10.8 and hemoglobin of 10.2. Patient's sodium on our draw was 125 with a calcium of 12.4. Patient was treated with IV fluids. He was also found to have a urinary tract infection and patient was treated with 1 g of IV Rocephin. Case was discussed with the hospitalist and patient was accepted for admission. Admission versus transfer was discussed with the patient and family and they prefer to be admitted here. Vital Signs Vital signs: Vital Signs Temperature 99 F 15/ 14:04 Pulse Rate 85
[2023-03-11 17:06] LABS: Appearance Urine Cloudy (Clear); Bacteria Urine 4+ /hpf; Bilirubin Urine Negative (Negative); Blood Urine Negative (Negative); Calcium Oxalate Crystals Urine Present /hpf; Color Urine Dark Yellow (Yellow); Glucose Urine UA Negative (Negative); Ketones Urine Negative (Negative); Leukocyte Esterase Ur 2+ LEU/UL (Negative); Mucus Urine Present /lpf; Need Manual Microscopic Reviewed; Nitrate Urine Positive (Negative); Protein Urine 1+ mg/dL (Negative); Specific Grav Ur 1.033 (1.001-1.035); Squamous Epithelial Cell Urine Few /hpf (Few); WBC Urine 51-100 /hpf; pH Urine 5.5 (5.0-9.0)
[2023-03-11 17:24] LABS: Add Urine Microscopic? YES
[2023-03-11] MEDS: LACTATED RINGERS 1,000 ML 125 ML IV CONT (17:28)
--- NOTE | 2023-03-11 17:45 | PM.IMHP ---
H&P: HPI History of Present Illness Date/Time: 03/11/23 18:00 Chief Complaint: Abnormal labs. Narrative: This is a very pleasant 62-year-old female who is currently undergoing palliative chemotherapy and radiation for metastatic breast cancer to the liver and brain who presented to the emergency department from home for evaluation of abnormal labs. The patient provides the following history; her provides additional information with the patient's permission. Her last chemotherapy was approximately 3 weeks ago and she had radiation this past Monday. More recently she has developed significant lower extremity edema and ascites and in fact she had a drain placed several weeks ago which her drains as needed (reports of light yellow fluid). This has helped tremendously and she thinks her lower extremity edema is also improving. Her appetite has been fair and she tries to stay hydrated, drinking about 3 bottles of water a day. Unfortunately she has become increasingly weak and labs drawn yesterday as an outpatient showed a low sodium and elevated calcium and she was directed to the ED for evaluation. Labs today showed a sodium of 125 and a calcium of 12.4. Blood pressure was 87/52 on arrival to the ED and she received 2 L bolus of normal saline with improvement in her blood pressures. She is being admitted in this setting for further treatment and evaluation. She denies fever, chills, sweats, cold and flu symptoms, chest pain, shortness a breath, vomiting, diarrhea, and dysuria. Review of Systems Review of Systems: Twelve systems were reviewed. She reports some mild confusion but that is not necessarily new for her. No focal weakness. No history of venous thromboembolism. He denies chest and pleuritic pain. No shortness of breath. Except as documented, all other systems were reviewed and are negative. [facility]LY [facility] Past Medical History Medical History (Updated 03/12/23 @ 15:09 by Yulia Finn PA-C) Cancer of right breast Status post mastectomy and chemoradiation. Now with metastatic disease to the brain and liver. Colitis (~10/2022) Surgical History Surgical History History of right mastectomy (2012) Port-A-Cath in place Family History Family History Other Family history non-contributory Social History Social History Social History: Surrogate medical decision maker: Parviz Abbott, spouse. Code status: Full code. Smoking status: Never smoker Alcohol intake: never Substance use: never Lack of Transportation: No Lack of Food: Never True Current Housing: I Have Housing Concerned About Future Housing: No Difficulty Paying Gas/Electric Bills: No Difficulty Paying for Meds: No Currently Unemployed: No Education: Trade/Vocational Certificate Difficulty w/ Childcare or Family Care: No Additional living arrangements comments: Lives with spouse in [place]. Spiritual care concerns: No Meds Home Medications and Allergies Home Medications Medication Instructions Recorded Confirmed Type benzonatate 200 mg capsule 400 mg PO HS PRN Cough 11/23/22 03/11/23 History citalopram 40 mg tablet 40 mg PO DAILY 11/23/22 03/11/23 History gabapentin 300 mg capsule 300 mg PO TID 11/23/22 03/11/23 History ondansetron 4 mg disintegrating 4 mg PO Q8H PRN Nausea 11/23/22 03/11/23 History tablet valacyclovir 500 mg tablet 500 mg PO DAILY 11/23/22 03/11/23 History oxycodone-acetaminophen 5 mg-325 1 tablet PO Q8H PRN pain #14 tabs 12/01/22 03/11/23 Rx mg tablet (Percocet) methylprednisolone 4 mg tablets in 4 mg PO DAILY #21 ea 01/10/23 03/11/23 Rx a dose pack (Methylpred DP) budesonide 3 mg 9 mg PO DAILY #90 ea 01/26/23 03/11/23 Rx capsule,delayed,extended release loperamide 2 mg capsule 2 mg PO Q4H PRN Diarrhea
[2023-03-11 17:58] VITALS: BP 103/71; PULSE 71; RESP 18; O2SAT 98
[2023-03-11 19:07] VITALS: BP 103/69; PULSE 74; RESP 19; O2SAT 98
[2023-03-11 19:30] VITALS: TEMP 36.9
--- NOTE | 2023-03-11 19:45 | ADMGEN ---
This patient, Radha Abbott, was admitted to Medical Room 348-01. Patient/family oriented to hospital policies and general routines including ID bracelet, bed and alarms, visiting hours, pain management, procedures, bathroom and other care routines, personal items, smoking policy, room service/diet, and visiting hours. Information on how to activate the Rapid Response Team has been discussed. Patient/Family are encouraged to report perceived risks to care and to ask questions if they do not understand what they are told or what they should do.
[2023-03-11 19:58] VITALS: BP 99/60; PULSE 73; RESP 14; TEMP 36.8; O2SAT 98; BMI 22.7
[2023-03-11 20:53] LABS: Anion Gap 2 mmol/L (8-16); Blood Urea Nitrogen 13 mg/dL (7-17); Calcium 11.4 mg/dL (8.4-10.2); Carbon Dioxide 27 mmol/L (22-30); Chloride 99 mmol/L (98-107); Estimated CRCL calculation 78 ml/min; Estimated Glomerular Filt Rate > 60; Glucose 122 mg/dL (65-110); Potassium 4.8 mmol/L (3.4-5.0); Sodium 128 mmol/L (137-145)
[2023-03-11] MEDS: GABAPENTIN 300 MG CAPSULE PO (21:50)
[2023-03-11] MEDS: oxyCODONE/ACETAMINOPHEN (*CRX) 5-325 MG TABLET 1 TABLET PO (21:51)
[2023-03-11] MEDS: SODIUM CHLORIDE 0.9% IV 1,000 ML 100 ML IV CONT (21:52)
[2023-03-12] VITALS (10 sets, daily range): BP systolic 101–108; BP diastolic 65–66; PULSE 77–97; RESP 16–18; TEMP 36.2–36.9; O2SAT 97–100
[2023-03-12 06:36] LABS: Hematocrit 31.6 % (37.0-47.0); Hemoglobin 9.7 g/dL (12.0-15.0); Mean Corpuscular HGB Conc 30.7 g/dl (32-36); Mean Corpuscular Hemoglobin 29.6 pg (26-34); Mean Corpuscular Volume 96.3 fl (80-100); Mean Platelet Volume 9.5 fl (7.4-10.4); Platelet Count Result 150 k/mm3 (150-375); Red Blood Count 3.28 M/mm3 (4.2-5.4); Red Cell Distribution Width 18.6 % (11.5-14.5); White Blood Count 8.3 K/mm3 (4.5-10.0)
[2023-03-12 06:48] LABS: Anion Gap -1 mmol/L (8-16); Blood Urea Nitrogen 13 mg/dL (7-17); Calcium 11.5 mg/dL (8.4-10.2); Carbon Dioxide 27 mmol/L (22-30); Chloride 102 mmol/L (98-107); Estimated CRCL calculation 78 ml/min; Estimated Glomerular Filt Rate > 60; Glucose 92 mg/dL (65-110); Magnesium 1.9 mg/dL (1.6-2.3); Potassium 4.5 mmol/L (3.4-5.0); Sodium 128 mmol/L (137-145)
[2023-03-12] MEDS: CITALOPRAM HYDROBROMIDE 20 MG TABLET 40 MG PO (08:35)
[2023-03-12] MEDS: BUDESONIDE 3 MG CAP.SR.24H 9 MG PO (08:35)
[2023-03-12] MEDS: GABAPENTIN 300 MG CAPSULE PO ×3 (08:35→16:29)
[2023-03-12] MEDS: valACYclovir HCL 500 MG TABLET PO (08:35)
--- NOTE | 2023-03-12 11:12 | PM.IMPN ---
Progress Note: A&P Assessment and Plan (1) Hypercalcemia: Code(s): E83.52 - Hypercalcemia Status: Acute Assessment and Plan: Likely secondary dehydration, reassess after IV fluid administration (2) Hyponatremia: Code(s): E87.1 - Hypo-osmolality and hyponatremia Status: Acute Assessment and Plan: Suspect this is secondary to hypovolemia, monitor (3) Urinary tract infection: Code(s): N39.0 - Urinary tract infection, site not specified Status: Acute Assessment and Plan: Rocephin started 03/11 Urine culture pending (4) Lower extremity edema: Code(s): R60.0 - Localized edema Status: Acute Assessment and Plan: Likely secondary to 3rd spacing due to malnutrition from immunocompromised state and chemotherapy and poor appetite (5) Metastatic breast cancer: Code(s): C50.919 - Malignant neoplasm of unspecified site of unspecified female breast Status: Acute Assessment and Plan: Per outpatient management (6) DVT (deep venous thrombosis): Code(s): I82.409 - Acute embolism and thrombosis of unspecified deep veins of unspecified lower extremity Status: Acute Assessment and Plan: Acute DVT noted LLE posterior tibial + peroneal veins Start eliquis Plan DVT prophylaxis with eliquis GI prophylaxis not indicated Code status full code Subjective Date/time seen: 03/12/23 11:12 Interval history: 62-year-old female with history of metastatic breast cancer undergoing chemotherapy is presenting with weakness and currently being treated for hyponatremia, hypercalcemia and suspected dehydration as well as possible UTI. No overnight events noted. No chest pain or shortness of breath. No nausea, vomiting or diarrhea. No fevers or chills. She is c/o LE edema and discomfort. Review of Systems Review of Systems: 12 point review of systems was assessed and was negative except as noted in the HPI Exam Narrative: General: No acute distress, alert and oriented per baseline HEENT: Atraumatic, normocephalic, mucous membranes moist CV: Regular rate and rhythm, S1, S2 Lungs: Clear to auscultation bilaterally, no rales or crackles noted, no wheezes, good air entry Abdomen: Soft, nontender, nondistended Extremities: Normal to inspection, 2+ pitting edmea B/L LE Skin: No rashes noted, no lesions or wounds seen Psych: Euthymic, normal affect Objective Data Vital Signs Vital Signs: Vital Signs - 24 hr 03/11/23 14:04 03/11/23 17:58 03/11/23 19:07 Temperature 99 F Pulse Rate 85 71 74 Respiratory Rate 20 18 19 Blood Pressure 87/52 L 103/71 103/69 Pulse Oximetry 99 98 98 Oxygen Delivery Room Air 03/11/23 19:30 03/11/23 19:58 03/12/23 00:00 Temperature 98.5 F 98.2 F Pulse Rate 73 97 Respiratory Rate 14 Blood Pressure 99/60 L Pulse Oximetry 98 Oxygen Delivery 03/12/23 04:00 03/12/23 06:00 03/12/23 08:01 Temperature 97.1 F L Pulse Rate 82 77 79 Respiratory Rate 16 Blood Pressure 103/65 Pulse Oximetry 97 97 Oxygen Delivery Room Air 03/12/23 08:00 03/12/23 08:00 Temperature Pulse Rate 77 Respiratory Rate Blood Pressure Pulse Oximetry Oxygen Delivery Room Air Intake/Output Intake/Output: Intake & Output 03/09/23 03/10/23 03/11/23 03/12/23 23:59 23:59 23:59 23:59 Intake Total 2100 170 Output Total 300 Balance 2100 -130 Meds/Results Medications: Active Medications Generic Name Dose Route Start Last Admin Trade Name Freq PRN Reason Stop Dose Admin Budesonide 9 mg 03/12/23 09:00 03/12/23 08:35 Budesonide 3 Mg Cap.Sr.24h PO 9 mg DAILY TANK Administration Citalopram Hydrobromide 40 mg 03/12/23 09:00 03/12/23 08:35 Citalopram Hydrobromide 20 Mg Tablet PO 40 mg DAILY TANK Administration Gabapentin 300 mg 03/11/23 21:25 03/12/23 08:35 Gabapentin 300 Mg Capsule PO 300 mg TID
[2023-03-12] MEDS: SODIUM CHLORIDE 0.9% IV 1,000 ML 75 ML IV CONT (12:45)
[2023-03-12] MEDS: oxyCODONE/ACETAMINOPHEN (*CRX) 5-325 MG TABLET 1 TABLET PO (12:47)
[2023-03-12] MEDS: ONDANSETRON HCL ODT 4 MG TABLET PO (12:48)
[2023-03-12] MEDS: APIXABAN 5 MG TABLET 10 MG PO (21:18)
[2023-03-13] VITALS (9 sets, daily range): BP systolic 95–107; BP diastolic 64–68; PULSE 74–87; RESP 18–20; TEMP 36.7–36.9; O2SAT 95–100
[2023-03-13 06:04] LABS: Eosinophils Absolute Auto 0.1 K/mm3 (0-0.3); Eosinophils Percent Auto 0.8 % (0-4.4); Hematocrit 31.5 % (37.0-47.0); Hemoglobin 9.6 g/dL (12.0-15.0); Immature Granulocyte Absolute 0.08 K/mm3 (0.00-0.031); Immature Granulocyte Percent A 0.9 % (0-0.5); Immature Platelet Fraction Pct 2.2 % (0.9-11.2); Lymphocytes Absolute Auto 0.66 K/mm3 (0.9-3.2); Lymphocytes Percent Auto 7.5 % (18.3-44.2); Mean Corpuscular HGB Conc 30.5 g/dl (32-36); Mean Corpuscular Hemoglobin 29.8 pg (26-34); Mean Corpuscular Volume 97.8 fl (80-100); Mean Platelet Volume 9.4 fl (7.4-10.4); Monocytes Percent Auto 10.8 % (2.6-8.5); Platelet Count Result 152 k/mm3 (150-375); Red Blood Count 3.22 M/mm3 (4.2-5.4); Red Cell Distribution Width 18.6 % (11.5-14.5); White Blood Count 8.8 K/mm3 (4.5-10.0)
[2023-03-13 06:17] LABS: Alanine Aminotransferase 43 U/L (6-35); Albumin Level 2.2 g/dL (3.5-5.1); Alkaline Phosphatase 444 U/L (38-126); Anion Gap -1 mmol/L (8-16); Aspartate Amino Transferase 101 U/L (14-36); Bilirubin,Total 0.8 mg/dL (0.2-1.3); Blood Urea Nitrogen 12 mg/dL (7-17); Calcium 11.3 mg/dL (8.4-10.2); Carbon Dioxide 27 mmol/L (22-30); Chloride 100 mmol/L (98-107); Estimated CRCL calculation 89 ml/min; Estimated Glomerular Filt Rate > 60; Glucose 80 mg/dL (65-110); Potassium 4.1 mmol/L (3.4-5.0); Sodium 126 mmol/L (137-145)
[2023-03-13] MEDS: SODIUM CHLORIDE 0.9% IV 1,000 ML 75 ML IV CONT ×2 (06:43→20:07)
[2023-03-13] MEDS: GABAPENTIN 300 MG CAPSULE PO (08:36)
[2023-03-13] MEDS: BUDESONIDE 3 MG CAP.SR.24H 9 MG PO (08:36)
[2023-03-13] MEDS: oxyCODONE/ACETAMINOPHEN (*CRX) 5-325 MG TABLET 1 TABLET PO (08:36)
[2023-03-13] MEDS: valACYclovir HCL 500 MG TABLET PO (08:36)
[2023-03-13] MEDS: CITALOPRAM HYDROBROMIDE 20 MG TABLET 40 MG PO (08:36)
[2023-03-13] MEDS: APIXABAN 5 MG TABLET 10 MG PO ×2 (08:36→20:08)
--- NOTE | 2023-03-13 10:04 | PM.IMPN ---
Progress Note: A&P Assessment and Plan (1) Hypercalcemia: Code(s): E83.52 - Hypercalcemia Status: Acute Assessment and Plan: Likely 2/2 malignancy, unchanged with IVF, consult heme/onc for further recs (2) Hyponatremia: Code(s): E87.1 - Hypo-osmolality and hyponatremia Status: Acute Assessment and Plan: Worsened with IVF, could be element of SIADH (3) Urinary tract infection: Code(s): N39.0 - Urinary tract infection, site not specified Status: Acute Assessment and Plan: Rocephin started 03/11 Urine culture pending (4) Lower extremity edema: Code(s): R60.0 - Localized edema Status: Acute Assessment and Plan: Likely secondary to 3rd spacing due to malnutrition from immunocompromised state and chemotherapy and poor appetite (5) Metastatic breast cancer: Code(s): C50.919 - Malignant neoplasm of unspecified site of unspecified female breast Status: Acute Assessment and Plan: Per outpatient management (6) DVT (deep venous thrombosis): Code(s): I82.409 - Acute embolism and thrombosis of unspecified deep veins of unspecified lower extremity Status: Acute Assessment and Plan: Acute DVT noted LLE posterior tibial + peroneal veins Start eliquis 03/12 Plan DVT prophylaxis with eliquis GI prophylaxis not indicated Code status full code Subjective Date/time seen: 03/13/23 10:04 Interval history: 62-year-old female with history of metastatic breast cancer undergoing chemotherapy is presenting with weakness and currently being treated for hyponatremia, hypercalcemia and suspected dehydration as well as possible UTI. No overnight events noted. No chest pain or shortness of breath. No nausea, vomiting or diarrhea. No fevers or chills. She is c/o LE edema and discomfort. She has noted some RUE tingling, s/p chemo, for which she gest gabapentin, which helps a little but wears off too soon. She states the norco helps. She is also c/o abdominal discomfort from her drains and requesting more pain meds. Review of Systems Review of Systems: 12 point review of systems was assessed and was negative except as noted in the HPI Exam Narrative: General: No acute distress, alert and oriented per baseline HEENT: Atraumatic, normocephalic, mucous membranes moist CV: Regular rate and rhythm, S1, S2 Lungs: Clear to auscultation bilaterally, no rales or crackles noted, no wheezes, good air entry Abdomen: Soft, nontender, nondistended Extremities: Normal to inspection, 2+ pitting edema B/L LE Skin: No rashes noted, no lesions or wounds seen Psych: Euthymic, normal affect Objective Data Vital Signs Vital Signs: Vital Signs - 24 hr 03/12/23 13:22 03/12/23 12:00 03/12/23 16:00 Temperature 97.7 F Pulse Rate 81 82 78 Respiratory Rate 16 Blood Pressure 101/66 Pulse Oximetry 98 Oxygen Delivery 03/12/23 21:28 03/12/23 20:00 03/12/23 20:00 Temperature 98.4 F Pulse Rate 80 88 Respiratory Rate 18 Blood Pressure 108/65 Pulse Oximetry 100 Oxygen Delivery Room Air 03/13/23 00:00 03/13/23 04:00 03/13/23 06:00 Temperature 98.1 F Pulse Rate 84 86 87 Respiratory Rate 18 Blood Pressure 107/68 Pulse Oximetry 95 Oxygen Delivery Intake/Output Intake/Output: Intake & Output 03/10/23 03/11/23 03/12/23 03/13/23 23:59 23:59 23:59 23:59 Intake Total 2100 1540 1350 Output Total 500 625 Balance 2100 1040 725 Meds/Results Medications: Active Medications Generic Name Dose Route Start Last Admin Trade Name Freq PRN Reason Stop Dose Admin Apixaban 10 mg 03/12/23 21:00 03/13/23 08:36 Apixaban 5 Mg Tablet PO 03/19/23 20:59 10 mg Q12HR TANK Administration Budesonide 9 mg 03/12/23 09:00 03/13/23 08:36 Budesonide 3 Mg Cap.Sr.24h PO 9 mg DAILY TANK Administration Citalopram Hydrobromide 40 mg 03/12/23 09:00
[2023-03-13] MEDS: GABAPENTIN 400 MG CAPSULE PO ×2 (13:32→17:31)
[2023-03-13] MEDS: HYDROcodone/acetaminophen (*CRX) 5-325 MG TABLET 1 TAB PO ×2 (13:32→17:38)
--- NOTE | 2023-03-13 13:50 | PC.NURSE ---
Called Iliana Hogan's office ([phone]) and left a voicemail. Patient seeings this provider outpatient for oncology purposes. Patient and her medical personnel from [facility] continuity writer to update Dr. Hogan on sodium and calcium levels during her stay here at [facility].
--- NOTE | 2023-03-13 18:42 | PDONCCN ---
HPI - Date of Consult Date/Time: 03/13/23 18:42 Requesting Physician: Edi Bragg MD Primary Care Provider: PHYSICIAN NOT ON STAFF - Consult Narrative Reason for consult: Metastatic breast cancer Narrative: Radha Abbott is a 62 year old female with history of early stage breast cancer diagnosed almost 15 years ago involving the right breast subsequently relapsed 2 years ago with liver and brain metastasis. She is currently receiving chemotherapy treatment at [facility]. Patient also had Gamma Knife treatment done for brain metastasis recently. Her last chemotherapy was almost 3 weeks ago. Patient is not sure about the name of the drugs received. She came into the hospital with generalized weakness and found to have abnormal labs including ferritin level of 125 and calcium of 12.4. She was found to be hypotensive and normal saline was started. Liver enzymes were elevated. Because the swelling in the lower extremity Doppler study was performed that showed thrombosis of the left posterior tibial and peroneal veins. Review of Systems - Review of Systems All systems reviewed & are unremarkable except as noted in [facility] and [facility] Medical History: Medical History (Last Updated 03/12/23 @ 15:09 by Yulia Finn PA-C) Cancer of right breast Status post mastectomy and chemoradiation. Now with metastatic disease to the brain and liver. Colitis Onset Date: ~10/2022 Surgical History: Surgical History (Last Reviewed 03/12/23 @ 15:09 by Yulia Finn PA-C) History of right mastectomy Onset Date: 2012 Port-A-Cath in place Family History: Family History (Last Reviewed 03/12/23 @ 15:10 by Yulia Finn PA-C) Other Family history non-contributory - Social History Social History: Social History (Last Reviewed 03/12/23 @ 15:10 by Yulia Finn PA-C) Alcohol Use: Alcohol intake: never Substance Use: Substance use: never Others: Spiritual care concerns: No Smoking Status: Smoking status: Never smoker Social Determinants of Health: Has the Lack of Transportation Kept You From Medical Appointments or From Getting Medications?: No Within the Past 12 Months, Were You Worried Whether Your Food Would Run Out Before You Got Money to Buy More?: Never True What is Your Housing Situation Today?: I Have Housing Are You Worried That in the Next 2 Months, You May Not Have Your Own Housing to Live In?: No Do You Have Trouble Paying Your Heating Or Electricity Bill?: No Do You Have Trouble Paying For Medicines?: No Are You Currently Unemployed and Looking for Work?: No Highest Level of Education Completed: Trade/Vocational Certific Do You Have Trouble With Childcare or the Care of a Family Member?: No Exam - Vital Signs Vital Signs - 24 hr 03/12/23 21:28 03/12/23 20:00 03/12/23 20:00 Temperature 36.9 C Pulse Rate 80 88 Respiratory Rate 18 Blood Pressure 108/65 Pulse Oximetry 100 Oxygen Delivery Room Air 03/13/23 00:00 03/13/23 04:00 03/13/23 06:00 Temperature 36.7 C Pulse Rate 84 86 87 Respiratory Rate 18 Blood Pressure 107/68 Pulse Oximetry 95 Oxygen Delivery 03/13/23 08:36 03/13/23 08:00 03/13/23 12:00 Temperature Pulse Rate 87 76 Respiratory Rate Blood Pressure Pulse Oximetry Oxygen Delivery Room Air 03/13/23 14:00 03/13/23 16:00 Temperature 36.9 C Pulse Rate 77 74 Respiratory Rate 20 Blood Pressure 95/65 L Pulse Oximetry 100 Oxygen Delivery - Exam HEENT: EOMI, PERRLA, mucous membranes moist and pink Neck: supple. No: JVD Lungs: clear to auscultation, normal air movement Heart: no murmurs, gallops, or rubs, regular rhythm, regular rate Abdomen: abdomen soft, non-distended, normal bowel sounds Integumentary: no abnormalities Neurological: normal speech Psychological: mental status NL, mood NL - Lab Results Laboratory L
[2023-03-13] MEDS: ZOLEDRONIC ACID 4 MG/100 ML 100 ML 400 MG IVPB (20:08)
[2023-03-14] VITALS (11 sets, daily range): BP systolic 100–107; BP diastolic 65–73; PULSE 72–103; RESP 16–20; TEMP 36.7–37.2; O2SAT 95–100
[2023-03-14 06:02] LABS: Basophils Percent Auto 0.1 % (0.2-1.2); Eosinophils Percent Auto 0.2 % (0-4.4); Hematocrit 32.5 % (37.0-47.0); Hemoglobin 10.1 g/dL (12.0-15.0); Immature Granulocyte Absolute 0.06 K/mm3 (0.00-0.031); Immature Granulocyte Percent A 0.6 % (0-0.5); Immature Platelet Fraction Pct 2.9 % (0.9-11.2); Lymphocytes Absolute Auto 0.71 K/mm3 (0.9-3.2); Lymphocytes Percent Auto 7.3 % (18.3-44.2); Mean Corpuscular HGB Conc 31.1 g/dl (32-36); Mean Corpuscular Hemoglobin 30.1 pg (26-34); Mean Corpuscular Volume 96.7 fl (80-100); Mean Platelet Volume 9.9 fl (7.4-10.4); Monocytes Percent Auto 10.4 % (2.6-8.5); Neutrophils Absolute Auto 7.9 K/mm3 (1.3-6.7); Neutrophils Percent Auto 81.4 % (45.5-73.1); Platelet Count Result 148 k/mm3 (150-375); Red Blood Count 3.36 M/mm3 (4.2-5.4); Red Cell Distribution Width 18.4 % (11.5-14.5); White Blood Count 9.7 K/mm3 (4.5-10.0)
[2023-03-14 06:12] LABS: Alanine Aminotransferase 41 U/L (6-35); Albumin Level 2.3 g/dL (3.5-5.1); Alkaline Phosphatase 447 U/L (38-126); Anion Gap 0 mmol/L (8-16); Aspartate Amino Transferase 100 U/L (14-36); Bilirubin,Total 0.8 mg/dL (0.2-1.3); Blood Urea Nitrogen 14 mg/dL (7-17); Calcium 11.6 mg/dL (8.4-10.2); Carbon Dioxide 27 mmol/L (22-30); Chloride 99 mmol/L (98-107); Estimated CRCL calculation 89 ml/min; Estimated Glomerular Filt Rate > 60; Glucose 94 mg/dL (65-110); Potassium 4.4 mmol/L (3.4-5.0); Sodium 126 mmol/L (137-145)
[2023-03-14] MEDS: SODIUM CHLORIDE 0.9% IV 1,000 ML 75 ML IV CONT (08:53)
[2023-03-14] MEDS: valACYclovir HCL 500 MG TABLET PO (09:33)
[2023-03-14] MEDS: GABAPENTIN 400 MG CAPSULE PO ×3 (09:33→17:18)
[2023-03-14] MEDS: CITALOPRAM HYDROBROMIDE 20 MG TABLET 40 MG PO (09:33)
[2023-03-14] MEDS: BUDESONIDE 3 MG CAP.SR.24H 9 MG PO (09:33)
[2023-03-14] MEDS: APIXABAN 5 MG TABLET 10 MG PO ×2 (10:03→21:03)
--- NOTE | 2023-03-14 10:31 | PC.NURSE ---
Patient off of unit to nuclear medicine
--- NOTE | 2023-03-14 10:56 | PC.NURSE ---
Patient returned from nuclear medicine
--- NOTE | 2023-03-14 11:36 | PM.IMPN ---
Progress Note: A&P Assessment and Plan (1) Hypercalcemia: Code(s): E83.52 - Hypercalcemia Status: Acute Assessment and Plan: Likely 2/2 malignancy, unchanged with IVF, consult heme/onc for further recs Appreciate oncology consultation, status post zometa (2) Hyponatremia: Code(s): E87.1 - Hypo-osmolality and hyponatremia Status: Acute Assessment and Plan: Worsened with IVF, could be element of SIADH (3) Urinary tract infection: Code(s): N39.0 - Urinary tract infection, site not specified Status: Acute Assessment and Plan: Rocephin started 03/11 Urine culture pending (4) Lower extremity edema: Code(s): R60.0 - Localized edema Status: Acute Assessment and Plan: Likely secondary to 3rd spacing due to malnutrition from immunocompromised state and chemotherapy and poor appetite (5) Metastatic breast cancer: Code(s): C50.919 - Malignant neoplasm of unspecified site of unspecified female breast Status: Acute Assessment and Plan: Per outpatient management (6) DVT (deep venous thrombosis): Code(s): I82.409 - Acute embolism and thrombosis of unspecified deep veins of unspecified lower extremity Status: Acute Assessment and Plan: Acute DVT noted LLE posterior tibial + peroneal veins Start eliquis 03/12 Plan DVT prophylaxis with eliquis GI prophylaxis not indicated Code status full code Subjective Date/time seen: 03/14/23 11:36 Interval history: 62-year-old female with history of metastatic breast cancer undergoing chemotherapy is presenting with weakness and currently being treated for hyponatremia, hypercalcemia and suspected dehydration as well as possible UTI. No overnight events noted. No chest pain or shortness of breath. No nausea, vomiting or diarrhea. No fevers or chills. She is c/o LE edema and discomfort. She has noted some RUE tingling, s/p chemo, for which she gest gabapentin, which helps a little but wears off too soon. She states the norco helps. She is also c/o abdominal discomfort from her drains and requesting more pain meds. 03/14: Essentially unchanged, no overnight events noted. No chest pain or shortness of breath. No nausea, vomiting or diarrhea. No fevers or chills. Review of Systems Review of Systems: 12 point review of systems was assessed and was negative except as noted in the HPI Exam Narrative: General: No acute distress, alert and oriented per baseline HEENT: Atraumatic, normocephalic, mucous membranes moist CV: Regular rate and rhythm, S1, S2 Lungs: Clear to auscultation bilaterally, no rales or crackles noted, no wheezes, good air entry Abdomen: Soft, nontender, somewhat distended Extremities: Normal to inspection, 1+ pitting edema B/L LE Skin: No rashes noted, no lesions or wounds seen Psych: Euthymic, normal affect Objective Data Vital Signs Vital Signs: Vital Signs - 24 hr 03/13/23 12:00 03/13/23 14:00 03/13/23 16:00 Temperature 98.4 F Pulse Rate 76 77 74 Respiratory Rate 20 Blood Pressure 95/65 L Pulse Oximetry 100 Oxygen Delivery 03/13/23 21:01 03/13/23 20:00 03/13/23 20:00 Temperature 98.3 F Pulse Rate 78 80 Respiratory Rate 20 Blood Pressure 100/64 Pulse Oximetry 96 Oxygen Delivery Room Air 03/14/23 00:00 03/14/23 04:00 03/14/23 06:00 Temperature 98.1 F Pulse Rate 80 80 92 Respiratory Rate 20 Blood Pressure 107/73 Pulse Oximetry 100 Oxygen Delivery 03/14/23 08:07 03/14/23 09:33 Temperature Pulse Rate 92 Respiratory Rate 20 Blood Pressure Pulse Oximetry 95 95 Oxygen Delivery Room Air Room Air Intake/Output Intake/Output: Intake & Output 03/11/23 03/12/23 03/13/23 03/14/23 23:59 23:59 23:59 23:59 Intake Total 2100 1540 2960 1240 Output Total 500 625 150 Balance 2100 1040 2335 1090 Meds/Results Medications: Active Medication
[2023-03-14] MEDS: HYDROcodone/acetaminophen (*CRX) 5-325 MG TABLET 1 TAB PO ×2 (14:10→21:02)
[2023-03-14 14:23] LABS: Magnesium 1.8 mg/dL (1.6-2.3)
[2023-03-15] VITALS (10 sets, daily range): BP systolic 96–102; BP diastolic 64–75; PULSE 81–90; RESP 16–18; TEMP 36.8–37.3; O2SAT 97–100
[2023-03-15 05:56] LABS: Basophils Percent Auto 0.1 % (0.2-1.2); Eosinophils Absolute Auto 0.1 K/mm3 (0-0.3); Eosinophils Percent Auto 0.5 % (0-4.4); Hematocrit 32.2 % (37.0-47.0); Hemoglobin 10.1 g/dL (12.0-15.0); Immature Granulocyte Absolute 0.06 K/mm3 (0.00-0.031); Immature Granulocyte Percent A 0.6 % (0-0.5); Immature Platelet Fraction Pct 3.2 % (0.9-11.2); Lymphocytes Absolute Auto 0.45 K/mm3 (0.9-3.2); Lymphocytes Percent Auto 4.9 % (18.3-44.2); Mean Corpuscular HGB Conc 31.4 g/dl (32-36); Mean Corpuscular Hemoglobin 30.1 pg (26-34); Mean Corpuscular Volume 96.1 fl (80-100); Mean Platelet Volume 10.1 fl (7.4-10.4); Monocytes Absolute Auto 0.7 K/mm3 (0.1-0.6); Monocytes Percent Auto 7.4 % (2.6-8.5); Neutrophils Percent Auto 86.5 % (45.5-73.1); Platelet Count Result 141 k/mm3 (150-375); Red Blood Count 3.35 M/mm3 (4.2-5.4); Red Cell Distribution Width 18.5 % (11.5-14.5); White Blood Count 9.3 K/mm3 (4.5-10.0)
[2023-03-15 06:05] LABS: Alanine Aminotransferase 42 U/L (6-35); Albumin Level 2.2 g/dL (3.5-5.1); Alkaline Phosphatase 470 U/L (38-126); Anion Gap -2 mmol/L (8-16); Aspartate Amino Transferase 90 U/L (14-36); Bilirubin,Total 0.8 mg/dL (0.2-1.3); Blood Urea Nitrogen 12 mg/dL (7-17); Calcium 10.4 mg/dL (8.4-10.2); Carbon Dioxide 28 mmol/L (22-30); Chloride 98 mmol/L (98-107); Estimated CRCL calculation 105 ml/min; Estimated Glomerular Filt Rate > 60; Glucose 92 mg/dL (65-110); Potassium 4.5 mmol/L (3.4-5.0); Sodium 124 mmol/L (137-145)
[2023-03-15] MEDS: GABAPENTIN 400 MG CAPSULE PO ×3 (09:04→18:15)
[2023-03-15] MEDS: APIXABAN 5 MG TABLET 10 MG PO ×2 (09:04→20:09)
[2023-03-15] MEDS: CITALOPRAM HYDROBROMIDE 20 MG TABLET 40 MG PO (09:04)
[2023-03-15] MEDS: BUDESONIDE 3 MG CAP.SR.24H 9 MG PO (09:04)
[2023-03-15] MEDS: valACYclovir HCL 500 MG TABLET PO (09:04)
[2023-03-15] MEDS: ONDANSETRON HCL ODT 4 MG TABLET PO (09:07)
--- NOTE | 2023-03-15 15:38 | PM.IMPN ---
Progress Note: A&P Assessment and Plan (1) Hypercalcemia: Code(s): E83.52 - Hypercalcemia Status: Acute Assessment and Plan: Calcium was 12.4 on admission which is a new finding for this patient. Most likely related to metastatic disease to her bones. Bone scan shows increased activity in the sternum suspicious for metastatic disease. Is also increased activity in the upper cervical spine which could be missed metastatic disease or spondylosis. A CT scan in November showed healing manubrial to explain the sternal bone scan findings. Heme/onc consulted. Treated with Zometa. Calcium has trended down now. Follow (2) Hyponatremia: Code(s): E87.1 - Hypo-osmolality and hyponatremia Status: Acute Assessment and Plan: Sodium normally runs in mid to low 130's. Na 125 on admission. This improved to 128 but worse again today. Was on IV fluids but these have been stopped. Could be element of SIADH or from fluid overload. Check Urine Na. Will fluid restrict for now. Consider lasix. Add NaCl tablets. (3) Urinary tract infection: Code(s): N39.0 - Urinary tract infection, site not specified Status: Acute Assessment and Plan: UA noted. Rocephin started 03/11. UCx growing EColi and Kleb pneumoniae. Change to Augmentin. (4) Lower extremity edema: Code(s): R60.0 - Localized edema Status: Acute Assessment and Plan: Likely secondary to 3rd spacing due to malnutrition from immunocompromised state (albumin 2.2). May also have compromise of venous return from abdominal masses. Some of the edema probably related to the left LE DVT. Consider Lasix. Fluid restrict now. (5) Metastatic breast cancer: Code(s): C50.919 - Malignant neoplasm of unspecified site of unspecified female breast Status: Acute Assessment and Plan: Per outpatient management (6) DVT (deep venous thrombosis): Code(s): I82.409 - Acute embolism and thrombosis of unspecified deep veins of unspecified lower extremity Status: Acute Assessment and Plan: Acute DVT noted LLE posterior tibial + peroneal veins Started Eliquis 03/12 Plan DVT prophylaxis with eliquis GI prophylaxis not indicated Code status full code Subjective Date/time seen: 03/15/23 15:38 Interval history: 62-year-old female with history of metastatic breast cancer undergoing chemotherapy is presenting with weakness and currently being treated for hyponatremia, hypercalcemia, dehydration as well as UTI. Assuming care. Chart reviewed. Patient feels dizzy mostly in the morning when she sits up for the 1st time. She denies any nausea or vomiting. She is eating okay. No chest pain or shortness of breath. She does have a mild headache in the morning. She has noted increasing pedal edema over the past 3-4 weeks. Exam Narrative: AF 98.2 96/66 85 16 99% ra Gen - NARD Chest - CTA bilaterally, nml RR CV - RRR S1/S2. Telemetry showing no significant dysrhythmias Abd -soft. Flank edema noted. Firm tender mass in the right flank. Right upper quadrant dressing with drain in place is clean, dry and intact. Ext - 2+ pitting pedal edema Psych - Nml mood and affect Skin - Warm and dry Objective Data Vital Signs Vital Signs: Vital Signs - 24 hr 03/14/23 16:00 03/14/23 20:13 03/14/23 20:00 Temperature 99 F Pulse Rate 103 H 72 Respiratory Rate 16 Blood Pressure 101/65 Pulse Oximetry 97 Oxygen Delivery Room Air 03/14/23 20:00 03/15/23 00:00 03/15/23 04:00 Temperature Pulse Rate 88 86 83 Respiratory Rate Blood Pressure Pulse Oximetry Oxygen Delivery 03/15/23 04:16 03/15/23 08:00 03/15/23 14:00 Temperature 99.2 F 98.2 F Pulse Rate 84 85 Respiratory Rate 18 16 Blood Pressure 102/66 96/64 L Pulse Oximetry 97 99 Oxygen Delivery Room Air 03/15/23 15:33 Temperature Pulse Rate Respiratory Rate Blood Pressure 96/66 L Puls
[2023-03-15] MEDS: AMOXICILLIN/CLAVULANATE K 875-125 MG TAB 1 TABLET PO (18:16)
[2023-03-15] MEDS: SODIUM CHLORIDE 500 MG TABLET PO (18:16)
[2023-03-15] MEDS: oxyCODONE/ACETAMINOPHEN (*CRX) 5-325 MG TABLET 1 TABLET PO (18:17)
[2023-03-15 18:28] LABS: Sodium 123 mmol/L (137-145)
[2023-03-16] VITALS (9 sets, daily range): BP systolic 95–104; BP diastolic 60–72; PULSE 77–87; RESP 16–18; TEMP 36.4–36.9; O2SAT 97–99
[2023-03-16 01:15] LABS: Sodium 122 mmol/L (137-145)
[2023-03-16 05:54] LABS: Basophils Percent Auto 0.1 % (0.2-1.2); Eosinophils Percent Auto 0.1 % (0-4.4); Hematocrit 33.2 % (37.0-47.0); Hemoglobin 10.4 g/dL (12.0-15.0); Immature Granulocyte Percent A 0.9 % (0-0.5); Lymphocytes Absolute Auto 0.53 K/mm3 (0.9-3.2); Lymphocytes Percent Auto 4.9 % (18.3-44.2); Mean Corpuscular HGB Conc 31.3 g/dl (32-36); Mean Corpuscular Hemoglobin 30.4 pg (26-34); Mean Corpuscular Volume 97.1 fl (80-100); Mean Platelet Volume 10.2 fl (7.4-10.4); Monocytes Absolute Auto 0.8 K/mm3 (0.1-0.6); Monocytes Percent Auto 7.4 % (2.6-8.5); Neutrophils Absolute Auto 9.4 K/mm3 (1.3-6.7); Neutrophils Percent Auto 86.6 % (45.5-73.1); Platelet Count Result 144 k/mm3 (150-375); Red Blood Count 3.42 M/mm3 (4.2-5.4); Red Cell Distribution Width 18.8 % (11.5-14.5); White Blood Count 10.9 K/mm3 (4.5-10.0)
[2023-03-16 06:06] LABS: Alanine Aminotransferase 46 U/L (6-35); Albumin Level 2.5 g/dL (3.5-5.1); Alkaline Phosphatase 579 U/L (38-126); Anion Gap 0 mmol/L (8-16); Aspartate Amino Transferase 105 U/L (14-36); Bilirubin,Total 0.9 mg/dL (0.2-1.3); Blood Urea Nitrogen 14 mg/dL (7-17); Carbon Dioxide 26 mmol/L (22-30); Chloride 96 mmol/L (98-107); Estimated CRCL calculation 105 ml/min; Estimated Glomerular Filt Rate > 60; Glucose 99 mg/dL (65-110); Potassium 4.8 mmol/L (3.4-5.0); Sodium 122 mmol/L (137-145)
[2023-03-16] MEDS: APIXABAN 5 MG TABLET 10 MG PO ×2 (08:27→20:10)
[2023-03-16] MEDS: AMOXICILLIN/CLAVULANATE K 875-125 MG TAB 1 TABLET PO ×2 (08:27→17:01)
[2023-03-16] MEDS: valACYclovir HCL 500 MG TABLET PO (08:27)
[2023-03-16] MEDS: BUDESONIDE 3 MG CAP.SR.24H 9 MG PO (08:28)
[2023-03-16] MEDS: CITALOPRAM HYDROBROMIDE 20 MG TABLET 40 MG PO (08:28)
[2023-03-16] MEDS: GABAPENTIN 400 MG CAPSULE PO ×3 (08:28→17:01)
[2023-03-16] MEDS: SODIUM CHLORIDE 500 MG TABLET 1000 MG PO ×2 (08:28→17:01)
[2023-03-16] MEDS: oxyCODONE/ACETAMINOPHEN (*CRX) 5-325 MG TABLET 1 TABLET PO (08:31)
[2023-03-16] MEDS: ONDANSETRON HCL ODT 4 MG TABLET PO (08:31)
--- NOTE | 2023-03-16 10:57 | PM.IMPN ---
Progress Note: A&P Assessment and Plan (1) Hypercalcemia: Code(s): E83.52 - Hypercalcemia Status: Acute Assessment and Plan: Calcium was 12.4 on admission which is a new finding for this patient. Most likely related to metastatic disease to her bones. Bone scan shows increased activity in the sternum suspicious for metastatic disease. Is also increased activity in the upper cervical spine which could be metastatic disease or spondylosis. A CT scan in November showed healing manubrial to explain the sternal bone scan findings. Heme/onc consulted. Treated with Zometa. Off IVF now. Calcium has trended down now. Follow (2) Hyponatremia: Code(s): E87.1 - Hypo-osmolality and hyponatremia Status: Acute Assessment and Plan: Sodium normally runs in mid to low 130's. Na 125 on admission. This improved to 128 but worse again today. Was on IV fluids but these have been stopped. Could be element of SIADH or from fluid overload/dilution. Urine Na pending. Continue fluid restriction. Advance NaCl tablets. Add lasix (3) Urinary tract infection: Code(s): N39.0 - Urinary tract infection, site not specified Status: Acute Assessment and Plan: UA noted. Rocephin started 03/11. UCx growing EColi and Kleb pneumoniae. Changed to Augmentin. (4) Lower extremity edema: Code(s): R60.0 - Localized edema Status: Acute Assessment and Plan: Likely secondary to 3rd spacing due to malnutrition from immunocompromised state (albumin 2.2). May also have compromise of venous return from abdominal masses. Some of the edema probably related to the left LE DVT. Add Lasix. Carl kim (5) Metastatic breast cancer: Code(s): C50.919 - Malignant neoplasm of unspecified site of unspecified female breast Status: Acute Assessment and Plan: CT A/P in November showing multiple large and confluent hepatic metastese. Per outpatient management. (6) DVT (deep venous thrombosis): Code(s): I82.409 - Acute embolism and thrombosis of unspecified deep veins of unspecified lower extremity Status: Acute Assessment and Plan: Acute DVT noted LLE posterior tibial + peroneal veins Started Eliquis 03/12 Plan DVT prophylaxis with eliquis GI prophylaxis not indicated Code status full code Subjective Date/time seen: 03/16/23 10:57 Interval history: 62-year-old female with history of metastatic breast cancer undergoing chemotherapy is presenting with weakness and currently being treated for hyponatremia, hypercalcemia, dehydration as well as UTI. She complains of left-sided abdominal pain which began yesterday evening. She did have a bowel movement yesterday. No blood in her stool. Last chemotherapy was 4 weeks ago. She denies feeling short of breath. No chest pain. She slept well last night. She was able to lay flat in the bed without orthopnea Exam Narrative: AF 97.6 101/72 79 18 97% ra Gen - NARD Chest - bibasilar crackles CV - RRR S1/S2. Telemetry showing no significant dysrhythmias Abd -soft. Firm mass in the right upper quad consistent with hepatomegaly. Right upper quadrant dressing with drain in place is clean, dry and intact. Ext - 2+ pitting pedal edema Psych - Nml mood and affect Skin - Warm and dry Objective Data Vital Signs Vital Signs: Vital Signs - 24 hr 03/15/23 14:00 03/15/23 15:33 03/15/23 12:00 Temperature 98.2 F Pulse Rate 85 82 Respiratory Rate 16 Blood Pressure 96/64 L 96/66 L Pulse Oximetry 99 Oxygen Delivery 03/15/23 16:00 03/15/23 19:49 03/15/23 20:00 Temperature 98.8 F Pulse Rate 88 90 90 Respiratory Rate 18 18 Blood Pressure 101/75 Pulse Oximetry 100 100 Oxygen Delivery Room Air 03/15/23 20:00 03/16/23 00:00 03/16/23 04:00 Temperature Pulse Rate 89 87 81 Respiratory Rate Blood Pressure Pulse Oximetry Oxygen Delivery 03/16/23 05:49 03/16/23 08:00 T
[2023-03-16 12:11] LABS: Sodium 122 mmol/L (137-145)
[2023-03-16] MEDS: FUROSEMIDE INJ 40 MG/4 ML VIAL 20 MG IV PUSH ×2 (12:20→17:01)
[2023-03-16 12:44] LABS: Creatinine Urine 119.4 mg/dL
[2023-03-16 14:55] LABS: Sodium Urine Random < 5 meq/L
[2023-03-16 19:19] LABS: Sodium 123 mmol/L (137-145)
[2023-03-17] VITALS (7 sets, daily range): BP systolic 95–101; BP diastolic 57–65; PULSE 78–87; RESP 16–18; TEMP 36.9–38; O2SAT 92–98
[2023-03-17 07:21] LABS: Basophils Percent Auto 0.1 % (0.2-1.2); Eosinophils Percent Auto 0.2 % (0-4.4); Hematocrit 33.4 % (37.0-47.0); Hemoglobin 10.7 g/dL (12.0-15.0); Immature Granulocyte Absolute 0.08 K/mm3 (0.00-0.031); Immature Granulocyte Percent A 0.8 % (0-0.5); Immature Platelet Fraction Pct 3.8 % (0.9-11.2); Lymphocytes Absolute Auto 0.63 K/mm3 (0.9-3.2); Lymphocytes Percent Auto 6.7 % (18.3-44.2); Mean Corpuscular Hemoglobin 30.7 pg (26-34); Mean Platelet Volume 9.9 fl (7.4-10.4); Monocytes Absolute Auto 0.9 K/mm3 (0.1-0.6); Monocytes Percent Auto 9.1 % (2.6-8.5); Neutrophils Absolute Auto 7.8 K/mm3 (1.3-6.7); Neutrophils Percent Auto 83.1 % (45.5-73.1); Platelet Count Result 145 k/mm3 (150-375); Red Blood Count 3.48 M/mm3 (4.2-5.4); White Blood Count 9.4 K/mm3 (4.5-10.0)
[2023-03-17 07:29] LABS: Alanine Aminotransferase 47 U/L (6-35); Albumin Level 2.5 g/dL (3.5-5.1); Alkaline Phosphatase 601 U/L (38-126); Anion Gap 4 mmol/L (8-16); Aspartate Amino Transferase 112 U/L (14-36); Blood Urea Nitrogen 16 mg/dL (7-17); Calcium 9.5 mg/dL (8.4-10.2); Carbon Dioxide 24 mmol/L (22-30); Chloride 94 mmol/L (98-107); Estimated CRCL calculation 105 ml/min; Estimated Glomerular Filt Rate > 60; Glucose 86 mg/dL (65-110); Potassium 4.3 mmol/L (3.4-5.0); Sodium 122 mmol/L (137-145)
[2023-03-17] MEDS: valACYclovir HCL 500 MG TABLET PO (09:18)
[2023-03-17] MEDS: AMOXICILLIN/CLAVULANATE K 875-125 MG TAB 1 TABLET PO ×2 (09:18→17:20)
[2023-03-17] MEDS: CITALOPRAM HYDROBROMIDE 20 MG TABLET 40 MG PO (09:18)
[2023-03-17] MEDS: GABAPENTIN 400 MG CAPSULE PO ×3 (09:18→17:20)
[2023-03-17] MEDS: FUROSEMIDE INJ 40 MG/4 ML VIAL 20 MG IV PUSH ×2 (09:19→17:20)
[2023-03-17] MEDS: APIXABAN 5 MG TABLET 10 MG PO ×2 (09:19→20:28)
[2023-03-17] MEDS: SODIUM CHLORIDE 500 MG TABLET 1000 MG PO ×2 (09:19→17:20)
[2023-03-17] MEDS: BUDESONIDE 3 MG CAP.SR.24H 9 MG PO (09:19)
--- NOTE | 2023-03-17 12:22 | PM.IMPN ---
Progress Note: A&P Assessment and Plan (1) Hyponatremia: Code(s): E87.1 - Hypo-osmolality and hyponatremia Status: Acute Assessment and Plan: Sodium normally runs in mid to low 130's. Na 125 on admission. This improved to 128 but worsened. Was on IV fluids but these have been stopped. Homa <5. Albumin 2.5. Suspect either she is intravascular depleted with difuse edema caused by low albumin and/or she has bulky adenopathy that is obstructing venous return. Na 122 this morning. Add Albumin and continue lasix for now. Check TSH and Cortisol levels. Continue NaCl tablets. Nephrology consult. Cortisol is 1.4. Last CT of the abdomen in November showed increasing nodular thickening of the left adrenal gland and enlarging right adrenal nodule. She is on Budesonide which could be blunting this as well but has limited systemic effects. Concern that adrenal gland function is blunted by infiltrative process and less likely from budesonide. Check Cosyntropin stim test. (2) Hypercalcemia: Code(s): E83.52 - Hypercalcemia Status: Acute Assessment and Plan: Calcium was 12.4 on admission which is a new finding for this patient. Most likely related to metastatic disease to her bones. Bone scan shows increased activity in the sternum suspicious for metastatic disease. Is also increased activity in the upper cervical spine which could be metastatic disease or spondylosis. A CT scan in November showed healing manubrial to explain the sternal bone scan findings. Heme/onc consulted. Treated with Zometa. Off IVF now. Calcium normal now. Follow (3) Urinary tract infection: Code(s): N39.0 - Urinary tract infection, site not specified Status: Acute Assessment and Plan: UA noted. Rocephin started 03/11. UCx growing EColi and Kleb pneumoniae. Changed to Augmentin. (4) Lower extremity edema: Code(s): R60.0 - Localized edema Status: Acute Assessment and Plan: Likely secondary to 3rd spacing due to malnutrition from immunocompromised state. May also have compromise of venous return from abdominal masses. Some of the edema probably related to the left LE DVT. RICHI wraps. (5) Metastatic breast cancer: Code(s): C50.919 - Malignant neoplasm of unspecified site of unspecified female breast Status: Acute Assessment and Plan: CT A/P in November showing multiple large and confluent hepatic metastese. Per outpatient management. (6) DVT (deep venous thrombosis): Code(s): I82.409 - Acute embolism and thrombosis of unspecified deep veins of unspecified lower extremity Status: Acute Assessment and Plan: Acute DVT noted LLE posterior tibial + peroneal veins Started Eliquis 03/12 Plan DVT prophylaxis with eliquis GI prophylaxis not indicated Code status full code Subjective Date/time seen: 03/17/23 12:22 Interval history: 62-year-old female with history of metastatic breast cancer undergoing chemotherapy is presenting with weakness and currently being treated for hyponatremia, hypercalcemia, dehydration as well as UTI. Feels well. Slept better last night. Eating better as well. No CP or SOB. Exam Narrative: AF 98.4 104/70 78 18 99% ra Gen - NARD Chest - decreased BS in the right base CV - RRR S1/S2. Telemetry showing no significant dysrhythmias Abd -soft. Firm mass in the right upper quad consistent with hepatomegaly. Right upper quadrant dressing with drain in place is clean, dry and intact. Ext - LE are RICHI wrapped. Bilateral LE pitting pedal edema Psych - Nml mood and affect Skin - Warm and dry Objective Data Vital Signs Vital Signs: Vital Signs - 24 hr 03/16/23 14:00 03/16/23 16:00 03/16/23 20:04 Temperature 98.2 F 98.4 F Pulse Rate 77 85 82 Respiratory Rate 16 18 Blood Pressure 95/60 L 104/70 Pulse Oximetry 97 99 Oxygen Delivery 03/16/23 20:00 03/16/23 20:00 03/17/23 00:00 Temperature Pulse Rat
[2023-03-17 12:32] LABS: Sodium 122 mmol/L (137-145)
[2023-03-17] MEDS: ALBUMIN HUMAN 25% 25 GM/100 ML 100 ML IVPB ×3 (13:08→23:52)
--- NOTE | 2023-03-17 13:15 | PM.CNNEP ---
Assessment and Plan Assessment and plan (1) Hyponatremia: Code(s): E87.1 - Hypo-osmolality and hyponatremia Status: Acute Assessment and Plan: the patient has low sodium. She did have mildly low sodium in October and November at this lab. On admission her sodium was only 125 and recently his dropped to 122 in spite hydration she was felt to be volume depleted. She has multiple reasons why she would have hyponatremia. She has metastatic breast cancer. She has [employer] Mets. She is on OxyContin she has 3rd spacing and probable intravascular volume depletion. Unfortunate is not much we can do about the above. She is getting treatment for her cancer and for metastases. We do not want her to be in pain so we can't really stop the narcotics. At this point we need to work around the above issues. She is on furosemide. We should start salt tablets along with furosemide which will help keep the diuretic from making the Sodium Lower. I told that in the future if she needs furosemide as an outpatient she should take salt tablets along with it. She should also start demeclocycline. Since this is a problem which is probably not going to go way, she will need a long-term approach for the hyponatremia.. (2) Metastatic breast cancer: Code(s): C50.919 - Malignant neoplasm of unspecified site of unspecified female breast Status: Acute Assessment and Plan: She is getting palliative chemotherapy (3) Hypercalcemia: Code(s): E83.52 - Hypercalcemia Status: Acute Assessment and Plan: this is from her pre renal state and probably from the breast cancer. This has improved since she got the fluids (4) Urinary tract infection: Code(s): N39.0 - Urinary tract infection, site not specified Status: Acute Assessment and Plan: She is growing Klebsiella in the urine. She is getting Augmentin for this. (5) Edema: Code(s): R60.9 - Edema, unspecified Status: Acute Assessment and Plan: She has RICHI wraps and is going to continue diuretics. History of Present Illness Reason for Consult Consult date: 03/17/23 Chief Complaint Chief complaint: hypercalcemia, hyponatremia History of Present Illness Narrative: Mari is a very pleasant 62-year-old lady who has multiple medical problems including metastatic breast cancer with metastases to the liver in the brain getting palliative chemotherapy, history of colitis, presence of a Port-A-Cath. In the last few weeks the patient has developed swelling requiring wrapping and also ascites requiring a peritoneal drain which the drains every once in a while. The patient's mental status worsened a bit so labs were checked in the sodium was low so she was sent to the emergency room. she was evaluated there and found to have a low sodium but also low blood pressure. She was felt to be intravascularly volume depleted.The patient received some fluid And her blood pressure improved her sodium level has worsened however in the last few days so renal consultation was requested. Because of the edema and ascites but also because of bilateral pleural effusions she was given some diuretics in the last day. The patient has not had low sodium levels in the past. She does not take narcotics at home. She is on narcotics, and citalopram at home, and is currently on furosemide. . Review of Systems Constitutional: Constitutional: Reports no additional constitutional complaints Eyes: Eyes: Reports no additional eye complaints ENT: Reports system reviewed and no additional complaints, except as documented Cardiovascular: Cardiovascular: Reports no additional cardiovascular complaints Respiratory: Respiratory: Reports no additional respiratory complaints Gastrointestinal: Gastrointestinal: Reports no additional gastrointestinal complaints Genitourinary: Genitourinary: Reports no add
[2023-03-17] MEDS: COSYNTROPIN 0.25 MG/ML VIAL IV PUSH (14:06)
[2023-03-17 16:55] LABS: Cortisol 30 Minute 8.17 ug/dL
[2023-03-17 16:56] LABS: Cortisol 60 Minute 9.69 ug/dL
[2023-03-17] MEDS: DEMECLOCYCLINE HCL 150 MG TABLET PO ×2 (17:28→20:28)
[2023-03-17 18:40] LABS: Sodium 123 mmol/L (137-145)
[2023-03-17] MEDS: oxyCODONE/ACETAMINOPHEN (*CRX) 5-325 MG TABLET 1 TABLET PO (18:43)
[2023-03-17 20:36] LABS: Free T4 Free Thyroxine Reflex 0.86 ng/dL (0.78-2.19)
[2023-03-17 21:40] LABS: Total Triiodothyronine (T3) 1.03 NG/ML (0.97-1.69)
[2023-03-18 01:37] LABS: Sodium 124 mmol/L (137-145)
[2023-03-18] MEDS: ALBUMIN HUMAN 25% 25 GM/100 ML 100 ML IVPB ×3 (05:55→17:51)
[2023-03-18 06:00] VITALS: BP 115/56; PULSE 76; RESP 18; TEMP 36.7; O2SAT 100
[2023-03-18 06:39] LABS: Alanine Aminotransferase 36 U/L (6-35); Albumin Level 2.9 g/dL (3.5-5.1); Alkaline Phosphatase 432 U/L (38-126); Anion Gap 4 mmol/L (8-16); Aspartate Amino Transferase 99 U/L (14-36); Bilirubin,Total 1.1 mg/dL (0.2-1.3); Blood Urea Nitrogen 15 mg/dL (7-17); Calcium 9.2 mg/dL (8.4-10.2); Carbon Dioxide 27 mmol/L (22-30); Chloride 95 mmol/L (98-107); Estimated CRCL calculation 105 ml/min; Estimated Glomerular Filt Rate > 60; Glucose 90 mg/dL (65-110); Potassium 3.6 mmol/L (3.4-5.0); Sodium 126 mmol/L (137-145)
[2023-03-18 07:29] LABS: Basophils Percent Auto 0.1 % (0.2-1.2); Eosinophils Percent Auto 0.2 % (0-4.4); Hematocrit 25.9 % (37.0-47.0); Hemoglobin 8.2 g/dL (12.0-15.0); Immature Granulocyte Absolute 0.07 K/mm3 (0.00-0.031); Immature Granulocyte Percent A 0.9 % (0-0.5); Lymphocytes Absolute Auto 0.63 K/mm3 (0.9-3.2); Lymphocytes Percent Auto 7.9 % (18.3-44.2); Mean Corpuscular HGB Conc 31.7 g/dl (32-36); Mean Corpuscular Hemoglobin 30.5 pg (26-34); Mean Corpuscular Volume 96.3 fl (80-100); Monocytes Absolute Auto 0.7 K/mm3 (0.1-0.6); Monocytes Percent Auto 8.9 % (2.6-8.5); Neutrophils Absolute Auto 6.6 K/mm3 (1.3-6.7); Platelet Count Result 109 k/mm3 (150-375); Red Blood Count 2.69 M/mm3 (4.2-5.4)
[2023-03-18] MEDS: FUROSEMIDE INJ 40 MG/4 ML VIAL 20 MG IV PUSH ×2 (09:26→17:50)
[2023-03-18] MEDS: CITALOPRAM HYDROBROMIDE 20 MG TABLET 40 MG PO (09:26)
[2023-03-18] MEDS: DEMECLOCYCLINE HCL 150 MG TABLET PO ×4 (09:26→21:00)
[2023-03-18] MEDS: GABAPENTIN 400 MG CAPSULE PO ×3 (09:26→17:51)
[2023-03-18] MEDS: APIXABAN 5 MG TABLET 10 MG PO ×2 (09:27→21:00)
[2023-03-18] MEDS: AMOXICILLIN/CLAVULANATE K 875-125 MG TAB 1 TABLET PO (09:27)
[2023-03-18] MEDS: BUDESONIDE 3 MG CAP.SR.24H 9 MG PO (09:27)
[2023-03-18] MEDS: valACYclovir HCL 500 MG TABLET PO (09:27)
[2023-03-18] MEDS: SODIUM CHLORIDE 500 MG TABLET 1000 MG PO ×2 (09:27→17:50)
[2023-03-18 09:30] VITALS: PULSE 76; RESP 18; O2SAT 100
--- NOTE | 2023-03-18 11:55 | PM.PNNEP ---
Progress Note: A&P Assessment and Plan (1) Hyponatremia: Code(s): E87.1 - Hypo-osmolality and hyponatremia Status: Acute Assessment and Plan: the patient has low sodium. She did have mildly low sodium in October and November at this lab. On admission her sodium was only 125 and recently his dropped to 122 in spite hydration she was felt to be volume depleted. She has multiple reasons why she would have hyponatremia. She has metastatic breast cancer. 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 She is on OxyContin she has 3rd spacing and probable intravascular volume depletion. currently she is on fluid restriction. She is on diuretics for her swelling and so she sodium chloride tablets along with each dose of diuretics. If she goes off the diuretics she should stop her sodium chloride. But as long she is on them she should be on the sodium chloride. Each dose of diuretic would be an indication for a dose of the sodium chloride tablet. The patient is also on demeclocycline. She will continue this fdc as long as the sodium is low. Patient can be discharged any time. (2) Metastatic breast cancer: Code(s): C50.919 - Malignant neoplasm of unspecified site of unspecified female breast Status: Acute Assessment and Plan: She is getting palliative chemotherapy (3) Hypercalcemia: Code(s): E83.52 - Hypercalcemia Status: Acute Assessment and Plan: this is from her pre renal state and probably from the breast cancer. This has improved since she got the fluids (4) Urinary tract infection: Code(s): N39.0 - Urinary tract infection, site not specified Status: Acute Assessment and Plan: She is growing Klebsiella in the urine. She is getting Augmentin for this. (5) Edema: Code(s): R60.9 - Edema, unspecified Status: Acute Assessment and Plan: She has TOBIN wraps and is going to continue diuretics. Subjective Date/time seen: 03/18/23 11:55 Interval history: Patient is feeling okay. She is lying flat in bed without shortness of breath. Review of Systems Cardiovascular: Cardiovascular: Reports no additional cardiovascular complaints Respiratory: Respiratory: Reports no additional respiratory complaints Gastrointestinal: Gastrointestinal: Reports no additional gastrointestinal complaints Genitourinary: Genitourinary: Reports no additional female genitourinary complaints Exam Narrative: WDWN in NAD skin no rash head ncat lungs clear cor reg no rub abd BS+ nontender and soft ext 2+ bilateral edema with Tobin wraps on. Objective Data Vital Signs Vital Signs: Vital Signs - 24 hr 03/17/23 14:00 03/17/23 12:00 03/17/23 20:00 Temperature 99.2 F Pulse Rate 85 87 85 Respiratory Rate 16 16 Blood Pressure 101/57 L Pulse Oximetry 98 98 Oxygen Delivery Room Air 03/17/23 20:50 03/17/23 22:07 03/18/23 06:00 Temperature 100.4 F H 98.5 F 98.1 F Pulse Rate 83 76 Respiratory Rate 18 18 Blood Pressure 95/65 L 115/56 L Pulse Oximetry 92 100 Oxygen Delivery Intake/Output Intake/Output: Intake & Output 03/15/23 03/16/23 03/17/23 03/18/23 23:59 23:59 23:59 23:59 Intake Total 714 220 9672 340 Output Total 200 400 700 650 Balance 760 540 440 -310 Meds/Results Medications: Active Medications Generic Name Dose Route Start Last Admin Trade Name Freq PRN Reason Stop Dose Admin Hydrocodone Bitart/Acetaminophen 1 tab 03/13/23 11:21 03/14/23 21:02 Hydrocodone/Acetaminophen (*Crx) 5-325 Mg Tablet PO 1 tab Q4H PRN Administration Pain Rated 4-6 Apixaban 10 mg 03/12/23 21:00 03/18/23 09:27 Apixaban 5 Mg Tablet PO 03/19/23 20:59 10 mg Q12HR TANK Administration Budesonide 9 mg 03/12/23 09:00 03/18/23 09:27 Budesonide 3 Mg Cap.Sr.24h PO 9 mg DAILY TANK Administration Citalopram Hydrobromide 40 mg 03/12/23 09:00 03/18/23 09:26 Citalopram Hydrobr
[2023-03-18 14:00] VITALS: BP 98/67; PULSE 80; RESP 16; TEMP 37.2; O2SAT 100
--- NOTE | 2023-03-18 17:26 | PM.IMPN ---
Progress Note: A&P Assessment and Plan (1) Hyponatremia: Code(s): E87.1 - Hypo-osmolality and hyponatremia Status: Acute Assessment and Plan: Sodium normally runs in mid to low 130's. Na 125 on admission. This improved to 128 but worsened. Was on IV fluids but these have been stopped. Homa <5. Albumin 2.5. Suspect either she is intravascular depleted with difuse edema caused by low albumin and/or she has bulky adenopathy that is obstructing venous return. NaCl tabs started. Nephrology consulted. Demeclocycline started. Na 126 this morning. Albumin and Lasix added. TSH mildly elevated at 8.6. Cortisol was 1.4. Last CT of the abdomen in November showed increasing nodular thickening of the left adrenal gland and enlarging right adrenal nodule. She is on Budesonide which could be blunting this as well but usually has limited systemic effects. Concern that adrenal gland function is blunted by infiltrative process and less likely from budesonide. Cosyntropin stim test showing cortisol was 4.8 -> 8.2 -> 9.7. Some response but blunted. Suspect cancer has infiltrated the adrenal glands. Continue NaCl tablets. Nephrology following and appreciate their input. (2) Hypercalcemia: Code(s): E83.52 - Hypercalcemia Status: Acute Assessment and Plan: Calcium was 12.4 on admission which is a new finding for this patient. Most likely related to metastatic disease to her bones. Bone scan shows increased activity in the sternum suspicious for metastatic disease. Is also increased activity in the upper cervical spine which could be metastatic disease or spondylosis. A CT scan in November showed healing manubrial to explain the sternal bone scan findings. Heme/onc consulted. Treated with Zometa. Off IVF now. Calcium normal now. Follow (3) Urinary tract infection: Code(s): N39.0 - Urinary tract infection, site not specified Status: Acute Assessment and Plan: UA noted. Rocephin started 03/11. UCx growing EColi and Kleb pneumoniae. Changed to Augmentin and completed a course. (4) Lower extremity edema: Code(s): R60.0 - Localized edema Status: Acute Assessment and Plan: Likely secondary to 3rd spacing due to malnutrition from immunocompromised state. May also have compromise of venous return from abdominal masses. Some of the edema probably related to the left LE DVT. RICHI wraps. (5) Metastatic breast cancer: Code(s): C50.919 - Malignant neoplasm of unspecified site of unspecified female breast Status: Acute Assessment and Plan: CT A/P in November showing multiple large and confluent hepatic metastese. Per outpatient management. (6) DVT (deep venous thrombosis): Code(s): I82.409 - Acute embolism and thrombosis of unspecified deep veins of unspecified lower extremity Status: Acute Assessment and Plan: Acute DVT noted LLE posterior tibial + peroneal veins Started Eliquis 03/12 Plan DVT prophylaxis with eliquis GI prophylaxis not indicated Code status full code Subjective Date/time seen: 03/18/23 17:26 Interval history: 62-year-old female with history of metastatic breast cancer undergoing chemotherapy is presenting with weakness and currently being treated for hyponatremia, hypercalcemia, dehydration as well as UTI. No complaints. Slept well. No CP or SOB. Exam Narrative: AF 98.9 98/67 80 16 100% ra Gen - NARD Chest - luns clear anteriorly with inspiratory crackles in the flanks CV - RRR S1/S2 Abd -soft. Firm mass in the right upper quad consistent with hepatomegaly. Right upper quadrant dressing with drain in place is clean, dry and intact. Ext - LE are RICHI wrapped. Bilateral LE pitting pedal edema better Psych - Nml mood and affect Skin - Warm and dry Objective Data Vital Signs Vital Signs: Vital Signs - 24 hr 03/17/23 20:00 03/17/23 20:50 03/17/23 22:07 Temperature 100.4 F H 98.5 F Pulse Rate 85 83 R
[2023-03-18] MEDS: oxyCODONE/ACETAMINOPHEN (*CRX) 5-325 MG TABLET 1 TABLET PO (17:50)
[2023-03-18 18:29] LABS: Sodium 127 mmol/L (137-145)
[2023-03-18 20:20] VITALS: PULSE 95; RESP 18; O2SAT 98
[2023-03-18 20:25] VITALS: BP 98/73; PULSE 95; RESP 18; TEMP 36.3; O2SAT 98
[2023-03-18] MEDS: HYDROcodone/acetaminophen (*CRX) 5-325 MG TABLET 1 TAB PO (21:03)
[2023-03-19] VITALS (8 sets, daily range): BP systolic 92–105; BP diastolic 56–63; PULSE 82–89; RESP 16–18; TEMP 36.7–37.2; O2SAT 97–99
[2023-03-19] MEDS: ALBUMIN HUMAN 25% 25 GM/100 ML 100 ML IVPB ×2 (00:16→05:58)
[2023-03-19] MEDS: ONDANSETRON HCL ODT 4 MG TABLET PO (00:50)
[2023-03-19 06:28] LABS: Eosinophils Percent Auto 0.2 % (0-4.4); Hematocrit 22.3 % (37.0-47.0); Immature Granulocyte Absolute 0.09 K/mm3 (0.00-0.031); Immature Granulocyte Percent A 1.1 % (0-0.5); Immature Platelet Fraction Pct 2.6 % (0.9-11.2); Lymphocytes Absolute Auto 0.66 K/mm3 (0.9-3.2); Mean Corpuscular HGB Conc 31.4 g/dl (32-36); Mean Corpuscular Hemoglobin 30.4 pg (26-34); Mean Platelet Volume 9.5 fl (7.4-10.4); Monocytes Absolute Auto 0.6 K/mm3 (0.1-0.6); Monocytes Percent Auto 7.6 % (2.6-8.5); Neutrophils Absolute Auto 6.9 K/mm3 (1.3-6.7); Neutrophils Percent Auto 83.1 % (45.5-73.1); Platelet Count Result 113 k/mm3 (150-375); Red Cell Distribution Width 19.3 % (11.5-14.5); White Blood Count 8.3 K/mm3 (4.5-10.0)
[2023-03-19 06:35] LABS: Alanine Aminotransferase 32 U/L (6-35); Albumin Level 3.3 g/dL (3.5-5.1); Alkaline Phosphatase 330 U/L (38-126); Anion Gap 8 mmol/L (8-16); Aspartate Amino Transferase 79 U/L (14-36); Bilirubin,Total 1.1 mg/dL (0.2-1.3); Blood Urea Nitrogen 21 mg/dL (7-17); Calcium 8.9 mg/dL (8.4-10.2); Carbon Dioxide 24 mmol/L (22-30); Chloride 96 mmol/L (98-107); Estimated CRCL calculation 128 ml/min; Estimated Glomerular Filt Rate > 60; Glucose 91 mg/dL (65-110); Potassium 3.4 mmol/L (3.4-5.0); Sodium 128 mmol/L (137-145)
[2023-03-19] MEDS: HYDROcodone/acetaminophen (*CRX) 5-325 MG TABLET 1 TAB PO (08:41)
[2023-03-19] MEDS: POTASSIUM CHLORIDE 20 MEQ ER TABLET 40 MEQ PO (08:42)
[2023-03-19] MEDS: valACYclovir HCL 500 MG TABLET PO (08:43)
[2023-03-19] MEDS: CITALOPRAM HYDROBROMIDE 20 MG TABLET 40 MG PO (08:43)
[2023-03-19] MEDS: APIXABAN 5 MG TABLET 10 MG PO (08:43)
[2023-03-19] MEDS: SODIUM CHLORIDE 500 MG TABLET 1000 MG PO (08:43)
[2023-03-19] MEDS: GABAPENTIN 400 MG CAPSULE PO ×2 (08:43→12:39)
[2023-03-19] MEDS: FUROSEMIDE INJ 40 MG/4 ML VIAL 20 MG IV PUSH (08:44)
[2023-03-19] MEDS: BUDESONIDE 3 MG CAP.SR.24H 9 MG PO (08:44)
[2023-03-19] MEDS: DEMECLOCYCLINE HCL 150 MG TABLET PO ×2 (08:44→12:39)
--- NOTE | 2023-03-19 10:24 | PM.PNNEP ---
Progress Note: A&P Assessment and Plan (1) Hyponatremia: Code(s): E87.1 - Hypo-osmolality and hyponatremia Status: Acute Assessment and Plan: the patient has low sodium. She did have mildly low sodium in October and November at this lab. On admission her sodium was only 125 and recently his dropped to 122 in spite hydration (she was volume depleted per exam and urine sodium). She has multiple reasons why she would have hyponatremia. She has metastatic breast cancer. 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 She is on OxyContin she has 3rd spacing and probable intravascular volume depletion. Cortisol level is low. Dr Poon and I discussed this as well. The she is on budesonide which is not very well absorbed however can cause adrenal suppression. However she does have some involvement of the cancer in her adrenal glands. She does not have high potassium or low blood pressure out of the range of where she usually runs so I do not think she has adrenal insufficiency per se. However it would be prudent to monitor this going forward. currently she is on fluid restriction and demeclocycline. She is on diuretics for her edema. I agree with discharge. The patient was down demeclocycline long-term. She also should stay on fluid restriction. I told her 5 or 6 cups of liquid per day. I talked with Dr. Poon. He is not going to send her home on diuretics and so she does not need the salt tablets. I did tell the patient that if in the future she goes on diuretics again for her swelling then she should also take a salt tablet with each diuretic tablet. I told the patient she could follow up with me in the office if she likes or her oncologist could handle the sodium issues. They are generally comfortable with this sort of thing but my door is always open. (2) Metastatic breast cancer: Code(s): C50.919 - Malignant neoplasm of unspecified site of unspecified female breast Status: Acute Assessment and Plan: She is getting palliative chemotherapy (3) Hypercalcemia: Code(s): E83.52 - Hypercalcemia Status: Acute Assessment and Plan: this is from her pre renal state and probably from the breast cancer. This has improved since she got the fluids (4) Urinary tract infection: Code(s): N39.0 - Urinary tract infection, site not specified Status: Acute Assessment and Plan: She is growing Klebsiella in the urine. She is getting Augmentin for this. (5) Edema: Code(s): R60.9 - Edema, unspecified Status: Acute Assessment and Plan: She has TOBIN wraps and is going to continue diuretics. Subjective Date/time seen: 03/19/23 10:24 Interval history: Patient is feeling okay. She is lying flat in bed without shortness of breath. In good spirits. Slept well last night. Exam Narrative: WDWN in NAD skin no rash head ncat lungs clear bilaterally cor reg no rub abd BS+ nontender and soft ext 2+ bilateral edema with Tobin wraps on. Objective Data Vital Signs Vital Signs: Vital Signs - 24 hr 03/18/23 14:00 03/18/23 20:25 03/18/23 20:20 Temperature 98.9 F 97.3 F L Pulse Rate 80 95 95 Respiratory Rate 16 18 18 Blood Pressure 98/67 L 98/73 L Pulse Oximetry 100 98 98 Oxygen Delivery Room Air 03/19/23 06:00 Temperature 98.1 F Pulse Rate 82 Respiratory Rate 16 Blood Pressure 102/63 Pulse Oximetry 99 Oxygen Delivery Intake/Output Intake/Output: Intake & Output 03/16/23 03/17/23 03/18/23 03/19/23 23:59 23:59 23:59 23:59 Intake Total 940 1140 1120 420 Output Total 400 700 950 350 Balance 540 440 170 70 Meds/Results Medications: Active Medications Generic Name Dose Route Start Last Admin Trade Name Freq PRN Reason Stop Dose Admin Hydrocodone Bitart/Acetaminophen 1 tab 03/13/23 11:21 03/19/23 08:41 Hydrocodone/Acetaminophen (*Crx) 5-325 Mg Tablet PO 1 tab Q4H PRN Administration Pain
[2023-03-19] MEDS: SODIUM CHLORIDE 0.9% IV 250 ML 30 ML IV CONT (11:30)
--- NOTE | 2023-03-19 11:31 | PCOTNOTE ---
Attempted to see pt. for occupational therapy evaluation. Pt. current receiving unit of blood. Evaluation for therapy services when appropriate.
--- NOTE | 2023-03-19 11:52 | PCPTNOTE ---
Patient recieving blood transfusion, Physical therapy will check on tomorrow.
--- NOTE | 2023-03-19 14:53 | PM.DS ---
DS: Admitting Diagnosis Discharge Date 03/19/23 Admitting Diagnosis Weakness DS: Discharge Diagnosis Discharge Diagnosis (1) Hyponatremia: Code(s): E87.1 - Hypo-osmolality and hyponatremia Status: Acute (2) Hypercalcemia: Code(s): E83.52 - Hypercalcemia Status: Acute (3) Urinary tract infection: Code(s): N39.0 - Urinary tract infection, site not specified Status: Acute (4) Lower extremity edema: Code(s): R60.0 - Localized edema Status: Acute (5) Metastatic breast cancer: Code(s): C50.919 - Malignant neoplasm of unspecified site of unspecified female breast Status: Acute Assessment and Plan: CT A/P in November showing multiple large and confluent hepatic metastese. Per outpatient management. (6) DVT (deep venous thrombosis): Code(s): I82.409 - Acute embolism and thrombosis of unspecified deep veins of unspecified lower extremity Status: Acute DS: Summary Hospital Course Reason for hospitalization: 62-year-old female with history of metastatic breast cancer undergoing palliative chemotherapy is presenting with weakness and currently being treated for hyponatremia, hypercalcemia, dehydration as well as UTI. Please see H&P for details. Hospital Course: Patient brought to the ED for weakness and found to have hypercalcemia, hypontremia and UTI. Sodium normally runs in mid to low 130's but was 125 on admission. This improved to 128 but then worsened. Was on IV fluids but these have been stopped. Homa <5. Albumin 2.5. Suspect either she is intravascular depleted with diffuse edema caused by low albumin and/or she has bulky adenopathy that is obstructing venous return. NaCl tabs started. Albumin and Lasix added. TSH mildly elevated at 8.6. Nephrology consulted. Demeclocycline started. Na 128 this morning. Cortisol was 1.4. Last CT of the abdomen in November showed increasing nodular thickening of the left adrenal gland and enlarging right adrenal nodule. She is on Budesonide which could be blunting this as well but usually has limited systemic effects. Concern that adrenal gland function is blunted by infiltrative process and less likely from budesonide. Cosyntropin stim test showing cortisol was 4.8 -> 8.2 -> 9.7. Some response but blunted. Suspect cancer has infiltrated the adrenal glands. Discussed with nephrology; will hold on adding additional oral steroids. Calcium was 12.4 on admission which is a new finding for this patient.? Most likely related to metastatic disease to her bones.? Bone scan shows increased activity in the sternum suspicious for metastatic disease.?There is also increased activity in the upper cervical spine which could be metastatic disease or spondylosis.? A CT scan in November showed healing manubrial to explain the sternal bone scan findings. Heme/onc was consulted. Treated with Zometa. Off IVF now. Calcium normal now. UA was concerning for UTI. Rocephin started 03/11. UCx growing EColi and Kleb pneumoniae. Changed to Augmentin and completed a course. Patient also with anasarca likely secondary to 3rd spacing due to malnutrition from immunocompromised state. May also have compromise of venous return from abdominal masses. Some of the edema probably related to the left LE DVT.? She was treated with Albumin and Lasix. RICHI wraps to her legs. CT A/P in November showing multiple large and confluent hepatic metastasis. Per outpatient management. Acute DVT noted LLE posterior tibial + peroneal veins. She was started on Eliquis 03/12. Her Hgb dropped to 7.0. No evidence of active bleeding but suspect more likely related to remobilization of fluids (Albumin now 3.3). She was transfused 1Unit PRBC. She is walking to the bathroom. She overall did well and was able to be discharged on 03/19/23. Status at Discharge Cognitive/behavioral status at discharge: Stable Time Spent with Patient Time attestation: Total time spent providing and/or coordinating d
[2023-03-19 15:49] LABS: Hematocrit 24.2 % (37.0-47.0); Hemoglobin 7.9 g/dL (12.0-15.0)
[2023-03-22 22:45] LABS: Adrenocorticotropic Hormone 11 pg/mL (6-50)
--- NOTE | 2023-03-24 10:20 | PC.NURSE ---
ACTH is WNL at 11. Dr. Poon aware.
== END 2023-03-19 17:30 | disposition home or self-care (01) | DRG 641 ==
LOC: ANHED 17:18 → ANH3MED 18:31
PROVIDERS: Physician Assistant; Student in an Organized Health Care Education/Training Program; Admitting Provider Internal Medicine; Emergency Provider Emergency Medicine; Visit Provider Internal Medicine
DX: E87.1 Hypo-osmolality and hyponatremia (principal); N39.0 Urinary tract infection, site not specified; E46 Unspecified protein-calorie malnutrition; I82.442 Acute embolism and thrombosis of left tibial vein; I82.452 Acute embolism and thrombosis of left peroneal vein; C78.7 Secondary malignant neoplasm of liver and intrahepatic bile duct; C79.31 Secondary malignant neoplasm of brain; E83.52 Hypercalcemia; E86.0 Dehydration; B96.20 Unspecified Escherichia coli [E. coli] as the cause of diseases classified elsewhere; B96.1 Klebsiella pneumoniae [K. pneumoniae] as the cause of diseases classified elsewhere; C50.911 Malignant neoplasm of unspecified site of right female breast; Z68.24 Body mass index [BMI] 24.0-24.9, adult
CPT/HCPCS: 36415; 36430; 71045; 71046; 78306; 80048; 80053; 81001; 82024; 82533; 82570; 83735; 84295; 84300; 84439; 84443; 84480; 85014; 85018; 85025; 85027; 85055; 86850; 86900; 86901; 86923; 87077; 87086; 87088; 87186; 93005; 93970; 96361; 96365; 97165; 99285; A9270; A9503; G0378; J0696; J0834; J1940; J3489; J7030; J7050; J7120; P9016; P9047

== ENCOUNTER 2023-03-22 13:49 | Observation (INO) | payer OTHER, SELFPAY ==
[2023-03-22] VITALS (21 sets, daily range): BP systolic 86–108; BP diastolic 58–71; PULSE 96–105; RESP 12–18; TEMP 36.5–38.1; O2SAT 94–100; BMI 26.8
--- NOTE | ~2023-03-22 | CT_ITS ---
EXAMINATION: CT abdomen pelvis w con DATE: 03/22/2023 16:09 INDICATION: GI bleed. Breast cancer with liver metastases. TECHNIQUE: Computed tomography (CT) of the abdomen and pelvis was performed with 100 cc Omnipaque 350 intravenous contrast. The dose-length product was 927.66 mGy-cm. Automated exposure control and iter ative reconstruction technique were employed. COMPARISON: CT dated 12/01/2022. FINDINGS: There is mild diffuse subcutaneous edema. There is a right breast implant status post maste ctomy. There is extensive infiltration of the hypovascular masses throughout the liver, consistent wi th metastatic disease. There is moderate ascites of the abdomen and pelvis. There is a catheter overl mayank the mid abdomen, possibly peritoneal dialysis catheter. Correlate clinically. There is right lower lobe atelectasis. Moderate right pleural effusion. Heart size normal. Calcified granulomas are present in the spleen. There is a peripherally calcified mass of the spleen, likely benign. There are bilateral adrenal nodules which appear infiltrative, suspicious for metasta tic disease. The pancreas, kidneys are unremarkable. There is diffuse subcutaneous edema. Nonobstruct jeanna bowel gas pattern. There is abnormal thickening of the ascending colon just proximal to the hepat ic flexure. Differential diagnosis includes primary and metastatic malignancy and colitis. No acute o sseous abnormality. IMPRESSION: 1. Metastatic disease to the liver and possibly the adrenal glands and ascending colon. Differential diagnosis for focal colonic wall thickening near the hepatic flexure includes infectious/inflammatory colitis. 2: Moderate right pleural effusion with underlying compressive atelectasis. Reviewed, dictated and finalized at location A. IMPRESSION: 1. Metastatic disease to the liver and possibly the adrenal glands and ascendin g colon. Differential diagnosis for focal colonic wall thickening near the hepa tic flexure includes infectious/inflammatory colitis. 2: Moderate right pleural effusion with underlying compressive atelectasis.
[2023-03-22] MEDS: SODIUM CHLORIDE 0.9% IV 1,000 ML 999 ML IV CONT (15:25)
[2023-03-22] MEDS: PANTOPRAZOLE SODIUM IV 40 MG VIAL 80 MG IV PUSH (15:26)
[2023-03-22 15:34] LABS: Mean Corpuscular Hemoglobin 32.9 pg (26-34); Mean Corpuscular Volume 106.2 fl (80-100); Mean Platelet Volume 10.9 fl (7.4-10.4); Platelet Count Result 187 k/mm3 (150-375); Red Blood Count 1.46 M/mm3 (4.2-5.4); White Blood Count 21.6 K/mm3 (4.5-10.0)
[2023-03-22 15:44] LABS: INR 4.3; Prothrombin Time 44.9 Seconds (11.1-14.7)
[2023-03-22 15:45] LABS: Partial Thromboplastin Time 40.2 SECONDS (22.3-36.8)
[2023-03-22 15:48] LABS: Albumin Level 2.6 g/dL (3.5-5.1); Alkaline Phosphatase 233 U/L (38-126); Anion Gap 12 mmol/L (8-16); Aspartate Amino Transferase 440 U/L (14-36); Bilirubin,Total 1.8 mg/dL (0.2-1.3); Blood Urea Nitrogen 42 mg/dL (7-17); Calcium 8.6 mg/dL (8.4-10.2); Carbon Dioxide 17 mmol/L (22-30); Chloride 96 mmol/L (98-107); Estimated CRCL calculation 105 ml/min; Estimated Glomerular Filt Rate > 60; Glucose 80 mg/dL (65-110); Lipase 671 U/L (23-300); Potassium 4.3 mmol/L (3.4-5.0); Sodium 125 mmol/L (137-145)
[2023-03-22 15:58] LABS: Troponin I < 0.012 ng/mL (0.000-0.034)
--- NOTE | 2023-03-22 15:58 | ED.RECABL ---
HPI - Recheck/Abnormal Lab/Rx General Chief Complaint: Recheck/Abnormal Lab/Rx Stated Complaint: low HGB Time Seen by Provider: 03/22/23 14:41 History of Present Illness HPI narrative: This is a 62-year-old female, with stage IV breast cancer with mets to the brain and GI bleed, who arrives from her oncologist office with recommendations for hospice. The patient was recently discharged from this facility for hyponatremia and UTI. Today, she had an episode of bloody vomiting and has appeared more confused from her baseline. Her and family members were at bedside note she had a conversation conversation with her oncologist (Dr. Dale Hogan) who recommends hospice for metastatic breast cancer. The patient agrees with this plan and wishes for the same. She complains of nausea and chronic substernal chest pain. Related Data Home Medications Medication Instructions Recorded Confirmed benzonatate 200 mg capsule 400 mg PO HS PRN Cough 11/23/22 03/22/23 citalopram 40 mg tablet 40 mg PO DAILY 11/23/22 03/22/23 gabapentin 300 mg capsule 300 mg PO TID 11/23/22 03/22/23 ondansetron 4 mg disintegrating 4 mg PO Q8H PRN Nausea 11/23/22 03/22/23 tablet valacyclovir 500 mg tablet 500 mg PO DAILY 11/23/22 03/22/23 loperamide 2 mg capsule 2 mg PO Q4H PRN Diarrhea 03/11/23 03/22/23 Allergies Allergy/AdvReac Type Severity Reaction Status Date / Time milk AdvReac Abdominal Verified 03/22/23 13:49 Pain Review of Systems Review of Systems: CONSTITUTIONAL: Denies fever, chills, or sweats. CARDIOVASCULAR: Substernal chest pain denies chest pain, palpitations, or edema. RESPIRATORY: Denies cough or dyspnea. GASTROINTESTINAL: Nausea and hematemesis denies abdominal pain, or diarrhea. GENITOURINARY: Denies dysuria or hematuria. SKIN: Denies rash or itching. MUSCULOSKELETAL: Denies back pain, joint pain, or myalgia. NEUROLOGIC: Denies headache, numbness, dizziness, or weakness. PSYCHIATRIC: Denies anxiety or depression. [facility] Past Medical History Medical History Cancer of right breast Status post mastectomy and chemoradiation. Now with metastatic disease to the brain and liver. Colitis (~10/2022) Surgical History Surgical History History of right mastectomy (2012) Port-A-Cath in place Family History Family History Other Family history non-contributory Social History Social History Social History: Surrogate medical decision maker: Parviz Abbott, spouse. Code status: Full code. Smoking status: Never smoker Alcohol intake: never Substance use: never Lack of Transportation: No Lack of Food: Never True Current Housing: I Have Housing Concerned About Future Housing: No Difficulty Paying Gas/Electric Bills: No Difficulty Paying for Meds: No Currently Unemployed: No Education: Don't Know Difficulty w/ Childcare or Family Care: No Additional living arrangements comments: Lives with spouse in [place]. Spiritual care concerns: No Exam Narrative: GENERAL: Well-developed, cachectic, and in no acute distress. HEAD: Normocephalic, atraumatic. EYES: PERRLA and EOMI. pale conjunctiva ENT: Nares clear, no rhinorrhea or epistaxis. Mucous membranes dry. Oropharynx without tonsillar hypertrophy exudate or other lesions. CHEST: Clear to auscultation. No respiratory distress. No wheezes rales or rhonchi HEART: Tachycardic with regular rhythm. No murmur heard. Normal peripheral pulses. ABDOMEN: Soft, nontender, nondistended, normal active bowel sounds. EXTREMITIES: Normal range of motion. 3+ edema in the bilateral lower extremities SKIN: Warm, dry, no rash. NEURO: No focal deficits. Alert and oriented x3. PSYCH: Normal mood and affect. Course Course Emergency
[2023-03-22 16:01] LABS: Alanine Aminotransferase 141 U/L (6-35)
[2023-03-22 16:08] LABS: Hematocrit 15.5 % (37.0-47.0); Hemoglobin 4.8 g/dL (12.0-15.0)
[2023-03-22 16:11] LABS: Lymphocytes Absolute Manual 2.16 K/mm3 (1.1-4.5); Monocytes Absolute Manual 1.51 K/mm3 (0.1-0.90); Monocytes Percent Manual 7 % (3-9); Neutrophils Percent Manual 83 % (46-73); Platelet Estimate Adequate (Adequate); Total Cells Counted 100
[2023-03-22 16:13] LABS: Anisocytosis 3+ (NORMAL); Hypochromasia 1+ (NORMAL); Schistocytes None Seen (NORMAL)
[2023-03-22 16:14] LABS: Polychromasia 1+ (NORMAL)
[2023-03-22] MEDS: PROCHLORPERAZINE EDISYLATE 10 MG/2 ML VIAL IV PUSH (16:16)
[2023-03-22] MEDS: SODIUM CHLORIDE 0.9% IV 250 ML 30 ML IV CONT (17:34)
[2023-03-22] MEDS: TUBING, BLOOD SET 1 EACH XX (17:34)
--- NOTE | 2023-03-22 18:32 | ADMGEN ---
This patient, Radha Abbott, was admitted to 3 [facility] Surg Room 323-01. Patient/family oriented to hospital policies and general routines including ID bracelet, bed and alarms, visiting hours, pain management, procedures, bathroom and other care routines, personal items, smoking policy, room service/diet, and visiting hours. Information on how to activate the Rapid Response Team has been discussed. Patient/Family are encouraged to report perceived risks to care and to ask questions if they do not understand what they are told or what they should do. Report from Melita in ER.
--- NOTE | 2023-03-22 21:25 | PM.IMHP ---
H&P: HPI History of Present Illness Date/Time: 03/22/23 21:25 Chief Complaint: Low hemoglobin Narrative: THIS IS A 62-YEAR-OLD FEMALE WITH PAST MEDICAL HISTORY SIGNIFICANT FOR METASTATIC BREAST CA PATIENT IS IN TERMINAL STAGE PRESENTS TO THE EMERGENCY ROOM DUE TO LOW HEMOGLOBIN IS BEEN ADMITTED FOR BLOOD TRANSFUSION AND PATIENT IS GOING TO GO HOSPICE CARE IN THE MORNING. Review of Systems Review of Systems: ROS unobtainable: Yes unobtainable due to medical condition PMFSH Past Medical History Medical History Cancer of right breast Status post mastectomy and chemoradiation. Now with metastatic disease to the brain and liver. Colitis (~10/2022) Surgical History Surgical History History of right mastectomy (2012) Port-A-Cath in place Family History Family History Other Family history non-contributory Social History Social History Social History: Surrogate medical decision maker: Parviz Abbott, spouse. Code status: Full code. Smoking status: Never smoker Alcohol intake: never Substance use: never Lack of Transportation: No Lack of Food: Never True Current Housing: I Have Housing Concerned About Future Housing: No Difficulty Paying Gas/Electric Bills: No Difficulty Paying for Meds: No Currently Unemployed: No Education: Don't Know Difficulty w/ Childcare or Family Care: No Additional living arrangements comments: Lives with spouse in [place]. Spiritual care concerns: No Meds Home Medications and Allergies Home Medications Medication Instructions Recorded Confirmed Type benzonatate 200 mg capsule 400 mg PO HS PRN Cough 11/23/22 03/22/23 History citalopram 40 mg tablet 40 mg PO DAILY 11/23/22 03/22/23 History gabapentin 300 mg capsule 300 mg PO TID 11/23/22 03/22/23 History ondansetron 4 mg disintegrating 4 mg PO Q8H PRN Nausea 11/23/22 03/22/23 History tablet valacyclovir 500 mg tablet 500 mg PO DAILY 11/23/22 03/22/23 History oxycodone-acetaminophen 5 mg-325 1 tablet PO Q8H PRN pain #14 tabs 12/01/22 03/22/23 Rx mg tablet (Percocet) budesonide 3 mg 9 mg PO DAILY #90 ea 01/26/23 03/22/23 Rx capsule,delayed,extended release loperamide 2 mg capsule 2 mg PO Q4H PRN Diarrhea 03/11/23 03/22/23 History apixaban 5 mg tablet (Eliquis) 5 mg PO Q12HR #60 tabs 03/19/23 03/22/23 Rx Allergies Allergy/AdvReac Type Severity Reaction Status Date / Time milk AdvReac Abdominal Verified 03/22/23 13:49 Pain Vital Signs Vital Signs - 24 hr 03/22/23 13:56 03/22/23 14:32 03/22/23 15:39 Temperature 97.9 F Pulse Rate 103 H 97 96 Respiratory Rate 18 12 12 Blood Pressure 86/58 L 97/62 L 100/66 Pulse Oximetry 100 100 100 Oxygen Delivery Room Air 03/22/23 17:24 03/22/23 17:37 03/22/23 17:39 Temperature 97.7 F 98.0 F 98.0 F Pulse Rate 100 100 100 Respiratory Rate 13 15 14 Blood Pressure 103/70 100/70 104/66 Pulse Oximetry 100 100 100 Oxygen Delivery 03/22/23 14:15 03/22/23 17:00 03/22/23 15:00 Temperature Pulse Rate 97 99 98 Respiratory Rate 15 15 16 Blood Pressure 91/65 L 100/71 91/67 L Pulse Oximetry 100 100 100 Oxygen Delivery 03/22/23 15:30 03/22/23 16:00 03/22/23 16:45 Temperature Pulse Rate 100 97 98 Respiratory Rate 14 16 15 Blood Pressure 100/66 105/70 105/65 Pulse Oximetry 100 100 100 Oxygen Delivery 03/22/23 17:30 03/22/23 17:40 03/22/23 17:50 Temperature 97.7 F 98.0 F 98.0 F Pulse Rate 103 H 100 100 Respiratory Rate 16 14 14 Blood Pressure 100/70 104/66 Pulse Oximetry 100 100 100 Oxygen Delivery 03/22/23 18:19 03/22/23 18:40 03/22/23 19:40 Temperature 100.0 F H 100.5 F H 98.9 F Pulse Rate 100 101 H 105 H Respiratory Rate 16 18 16 Blood Pressure 104/65 100/59 L 108/65 P
[2023-03-22 22:26] LABS: Hematocrit 17.5 % (37.0-47.0); Hemoglobin 5.6 g/dL (12.0-15.0)
[2023-03-23 00:21] VITALS: BP 98/62; PULSE 101; RESP 14; TEMP 37.6; O2SAT 97
[2023-03-23 01:21] VITALS: BP 105/70; PULSE 102; RESP 14; TEMP 37.3; O2SAT 99
[2023-03-23] MEDS: SODIUM CHLORIDE 0.9% IV 500 ML 30 ML (02:22)
[2023-03-23 03:51] LABS: Hematocrit 21.1 % (37.0-47.0)
[2023-03-23] MEDS: CITALOPRAM HYDROBROMIDE 20 MG TABLET 40 MG PO (09:03)
[2023-03-23] MEDS: valACYclovir HCL 500 MG TABLET PO (09:03)
[2023-03-23] MEDS: BUDESONIDE 3 MG CAP.SR.24H 9 MG PO (09:03)
[2023-03-23] MEDS: GABAPENTIN 300 MG CAPSULE PO ×2 (09:03→12:09)
--- NOTE | 2023-03-23 12:16 | PM.DS ---
DS: Admitting Diagnosis Discharge Date March 23, 2023 Admitting Diagnosis Metastatic breast cancer DS: Discharge Diagnosis Discharge Diagnosis (1) Terminal care: Code(s): Z51.5 - Encounter for palliative care Status: Acute (2) Immunocompromised patient: Code(s): D84.9 - Immunodeficiency, unspecified Status: Acute (3) Metastatic breast cancer: Code(s): C50.919 - Malignant neoplasm of unspecified site of unspecified female breast Status: Acute (4) Severe anemia: Code(s): D64.9 - Anemia, unspecified Status: Acute DS: Summary Hospital Course Hospital Course: Patient was admitted failure to thrive and metastatic breast cancer. Patient will be discharged on Time Spent with Patient Time attestation: Total time spent providing and/or coordinating discharge services: Exam Narrative: lying in bed Const: General: comfortable, no acute distress, well developed, alert, awake, average body habitus, edematous and other (Terminal looking) Nutritional Appearance: average body habitus and edematous Orientation/consciousness: oriented to person and oriented to place Other: Generalized pallor HENMT: Head: normal to inspection, normocephalic and atraumatic Ears: hearing grossly normal bilaterally Face/Nose/Sinus: normal facial exam Face and sinus: normal facial exam Eyes: General: appearance normal, both eyes and all related structures Pupils: Equal, round and reactive pupils present EOM: EOMs intact bilaterally Neck: Neck: full ROM, no lymphadenopathy and no JVD Thyroid: thyroid normal Lymphatic: no lymphadenopathy noted Resp: Effort & Inspection: normal respiratory effort and able to speak in complete sentences Auscultation: clear to auscultation bilaterally Cardio: Jugular venous distension: no JVD Rate: regular rate Rhythm: regular rhythm Heart sounds: S1 normal heart sound present and S2 normal heart sound present GI: Inspection: other (RUQ DRAIN) : General: Yes deferred Skin: Rashes: no rashes Wounds: no wounds Neuro: General: oriented to person, oriented to place, CN's II-XI intact bilaterally and Unable to assess gait Cranial nerves: Yes CN's II-XII intact bilaterally and Yes Equal, round and reactive pupils present Cognition (Neuro): abnormal cognition Speech: normal speech Gait exam (Neuro): Unable to assess gait Motor exam (neuro): 5/5 motor strength present throughout Extrem: General: edema bilateral DS: Data Data Completed and Pending Labs on day of discharge: Labs from last 24 hours 03/23/23 03/22/23 03/22/23 03:45 22:02 15:26 WBC RBC Hgb 7.0 L 5.6 L* Hct 21.1 L 17.5 L* MCV MCH MCHC RDW Plt Count MPV Immature Gran % (Auto) Neut % (Auto) Lymph % (Auto) [place] % (Auto) Eos % (Auto) Baso % (Auto) Lymph # (Auto) [place] # (Auto) Eos # (Auto) Baso # (Auto) Abs Immat Gran (auto) Absolute Neuts (auto) Absolute Nucleated RBC Total Counted Neutrophils % (Manual) Lymphocytes % (Manual) Monocytes % (Manual) Nucleated RBC % Abs Lymphs (Manual) Abs Monocytes (Manual) Platelet Estimate Polychromasia Hypochromasia Anisocytosis Schistocytes PT INR APTT Sodium Potassium Chloride Carbon Dioxide Anion Gap BUN Creatinine Estim Creat Clear Calc Estimated GFR Glucose Calcium Total Bilirubin AST ALT Alkaline Phosphatase Troponin I Total Protein Albumin Lipase Cancelled Blood Type A Positive Antibody Screen Negative Crossmatch See Detail 03/22/23 15:26 WBC 21.6 H RBC 1.46 L Hgb 4.8 L* D Hct 15.5 L* MCV 106.2 H D MCH 32.9 D MCHC 31.0 L RDW 22.0 H Plt Count 187 D MPV 10.9 H Immature Gran % (Auto) Not Reportable Neut % (Auto) Not Reportable Lymph % (Auto) Not Reportable [place] % (Auto) Not Reportable Eos % (Auto)
[2023-03-23] MEDS: CENTRAL LINE FLUSH 10 ML IV PUSH (13:06)
[2023-03-23] MEDS: HEPARIN SODIUM LOCK FLUSH 500 UNITS/5 ML SYRINGE IV PUSH (13:06)
== END 2023-03-23 13:30 | disposition hospice, home (50) ==
LOC: ANHED 16:05 → ANH3MEDSUR 18:14
PROVIDERS: Admitting Provider Internal Medicine; Emergency Provider Preventive Medicine Aerospace Medicine; Visit Provider Student in an Organized Health Care Education/Training Program
DX: Z51.5 Encounter for palliative care (principal); D84.9 Immunodeficiency, unspecified; C50.911 Malignant neoplasm of unspecified site of right female breast; C79.31 Secondary malignant neoplasm of brain; R62.7 Adult failure to thrive; Z68.26 Body mass index [BMI] 26.0-26.9, adult; Z90.11 Acquired absence of right breast and nipple; D64.9 Anemia, unspecified; K92.0 Hematemesis; R79.89 Other specified abnormal findings of blood chemistry; J90 Pleural effusion, not elsewhere classified; J98.11 Atelectasis; E87.1 Hypo-osmolality and hyponatremia; G89.29 Other chronic pain; R07.9 Chest pain, unspecified; Z92.21 Personal history of antineoplastic chemotherapy; Z92.3 Personal history of irradiation; Z79.01 Long term (current) use of anticoagulants; Z79.891 Long term (current) use of opiate analgesic; Z79.899 Other long term (current) drug therapy
CPT/HCPCS: 36415; 36430; 74177; 80053; 83690; 84484; 85014; 85018; 85025; 85610; 85730; 86850; 86900; 86901; 86923; 96361; 96374; 96375; 99285; A9270; C9113; G0378; J0780; J7030; J7040; J7050; P9016; Q9967